=== PATIENT | female | born 1935 | race Caucasian/White ===

== ENCOUNTER 2016-05-14 14:26 | Emergency (ER) | payer OTHER, MEDICARE ==
[~2016-05-14 14:26] MED LIST: ABILIFY5 MG PO; ALPRAZOLAM0.5 MG PO; ASPIRIN 81 LOW81 MG PO; ATENOLOL100 MG PO; CARDIZEM LA240 MG PO; CARDIZEM PO; CLOPIDOGREL75 MG PO; FLUOXETINE HCL10 M1 PO; IPRATROPIUM BROMIDE/; LASIX20 MG PO; LEVOTHYROXINE75 MCG PO; NAMENDA10 MG PO; NITROGLYCER0.1 MG/HR TOP; NITROGLYCER0.6 MG/H1 TOP; POTASSIUM CHLO20 ME4 PO; SIMVASTATIN40 MG
--- NOTE | 2016-05-14 16:40 | ED NURSING NOTES ---
Clinical Report - Nurses [facility] [address] [place] [address] 05/14/2016 14:28 Patient: BIPIN HOROWITZ TRIAGE Triage time 14:30 May 14 2016. Acuity: LEVEL 3. Chief Complaint: ALTERED MENTAL STATUS. Alert. YANNA COMA SCORE: [place] Coma Scale: 15- eyes open spontaneously (4); best verbal response- oriented x 4 (5); best motor response- obeys commands (6). --14:51 Agapito Rodriguez R.N. 14:34 05/14/16. BP: 119/71. HR: 65 (irregularly-irregular). RR: 16. O2 saturation: 94% on room air. Temp: 98 F. Pain level now: 0/10. --14:51 Agapito Rodriguez R.N. Weight: 69.3 kg measured. Height/Length: 65 inches Per Patient. BMI: 25.5. --14:41 Agapito Rodriguez R.N. Medications Albuterol Sulfate Inhalation nebulizer, daily. Clopidogrel Bisulfate Oral (Tablet 75 mg) 1 tablet, daily. Diltiazem HCl Oral 300 mg, daily. FLUoxetine HCl Oral (Capsule 10 mg) 1 capsule, 2x a day. Levothyroxine Sodium Oral (Tablet 75 mcg) 1 tablet, daily. Namenda Oral (Tablet 10 mg) 1 tablet, daily. Nitroglycerin Transdermal 0.3 mg, daily. --14:43 Agapito Rodriguez R.N. Memantine HCl Oral (Tablet 10 mg) 1 tablet, as needed. --14:44 Agapito Rodriguez R.N. Atenolol Oral (Tablet 100 mg) 1-1/2 tablets, daily. --14:48 Agapito Rodriguez R.N. Aspirin Oral (Tablet Chewable 81 mg) 1 tablet. --14:48 Agapito Rodriguez R.N. Albuterol Sulfate Inhalation nebulizer, daily. Albuterol Sulfate Inhalation nebulizer, daily. --14:48 Agapito Rodriguez R.N. Allergies Sulfa Antibiotics. --14:43 Agapito Rodriguez R.N. History Arrived by EMS, and accompanied by marketing research analyst. ( Noted to have (R) sided weakness and slurred speech this AM by marketing research analyst. The (R)-s weakness resolved by the time EMS arrived on the scene.). This started today. She has had trouble walking. 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 PAST MEDICAL HX: The patient is post-menopausal. SOCIAL HX: Smoker- current status unknown. No alcohol use or drug use. No infectious disease exposure. ABUSE ASSESSMENT: No report of abuse. NUTRITIONAL RISK ASSESSMENT: The nutritional risk assessment revealed no deficiencies. FUNCTIONAL ASSESSMENT: Functional assessment: no impairments noted. LEARNING NEEDS ASSESSMENT: The learning needs assessment revealed no barriers. FALL RISK ASSESSMENT: Fall risk assessment completed. Risk factors identified include patient age greater than 65 years and impairment of mobility. SKIN INTEGRITY ASSESSMENT: Skin integrity risk assessment completed. No skin integrity risk identified. --14:51 Agapito Rodriguez R.N. ADDITIONAL SURGERIES: Adenoidectomy. Appendectomy. Hysterectomy. Lung Surgery. Tonsillectomy. --14:50 Agapito Rodriguez R.N. Interventions ID and allergy band on patient. To treatment room. --14:51 Agapito Rodriguez R.N. PHYSICAL ASSESSMENT To room via stretcher. GENERAL / NEURO / PSYCH: Alert. Oriented X 4. Patient's speech is slurred. Patient appears well-nourished and neat and clean. RESPIRATORY: Respirations not labored. CVS: Cardiac rhythm: (Atrial fibrillation). GI / : Abdomen soft. Bowel sounds within normal limits. SKIN: Skin is warm and dry. Normal skin turgor. --14:52 Aagpito Rodriguez R.N. NURSING PROGRESS NOTES Oxygen administered by nasal cannula at 2 liters. Patient gowned. Reassurance given to the patient. Patient identifiers checked. Call light placed in reach. Side rails up x 2. Bed placed in lowest position. Brakes of bed on. Patient ready for evaluation- chart flagged and ED physician notified. --14:53 Agapito Rodriguez R.N. <<STRICKEN ENTRY-- 14:00 05/14/16. BP: 128/84. HR: 88. RR: 18. O2 saturation: 95% on room air. Pain level now: 7/10. --15:15 Agapito Rodriguez R.N. --END STRIKE>> Charted on wrong patient. --15:38 Agapito Rodriguez R.N. 15:07 05/14/2016 Site #1 started via IV in the left wrist with an 20g angiocath, with aseptic technique and good blood return; one attempt. Blood drawn: rainbow set and cultures x1. Labeled in the presence of the patient and sent to the lab. Saline lock flushed with 10 mL saline. --15:22 Chilo Gamez R.N. 15:22 05/14/2016 Started bag #1 1000 mL IV Fluids IV NS (Saline); at 500 mL/hr over 30 minute(s) via site #1 via IV pump. Allergies verified and confirmed 5 rights. IV patency established. IV site checked: no pain, redness, or swelling. IV flushed thoroughly pre- and post-medication administration. --15:22 Chilo Gamez R.N. EKG time: (1534). EKG was ordered, performed by a tech and shown to the ED physician. --16:15 Odette Choudhury 15:00 05/14/16. BP: 114/61. HR: 67. RR: 20. O2 saturation: 98% on nasal cannula at 2 liters/minute. Pain level now: 0/10. --16:43 Agapito Rodriguez R.N. 16:43 05/14/16. BP: 107/66. HR: 64. RR: 20. O2 saturation: 100% on room air. Pain level now: 0/10. --16:45 Agapito Rodriguez R.N. 16:45 05/14/2016 Started 1 gm of Ceftriaxone IVPB in bag #1 50 mL; at 100 mL/hr over 30 minute(s) via site #1; Allergies verified and confirmed 5 rights. IV patency established. IV site checked: no pain, redness, or swelling. IV flushed thoroughly pre- and post-medication administration. --17:16 Agapito Rodriguez R.N. 17:11 05/14/2016 Ceftriaxone IVPB Discontinued: bag #1 infused. Total amount infused: 50 mL. IV patency established. IV site checked: no pain, redness, or swelling. IV flushed thoroughly. --17:16 Agapito Rodriguez R.N. DISPOSITION / DISCHARGE 18:16 05/14/16. BP: 118/54. HR: 65. RR: 18. O2 saturation: 98%. Temp: 98.3 F. Pain level now 0/10. --18:19 Chilo Gamez R.N. Departure time: 1730. Condition at departure: improved. No learning barriers present. Discharge instructions provided and reviewed with the patient and family. Reviewed warnings. Reviewed medication(s). Treatments reviewed. Reviewed referrals. Patient and family verbalized understanding. The patient was discharged home and accompanied by family. She left the Emergency Department ambulatory and via private vehicle. Patient driving. --18:19 Chilo Gamez R.N. 16:24 05/14/2016 IV Fluids IV NS Discontinued: bag #1 infused upon discharge. Total amount infused: 1000 mL. IV patency established. IV site checked: no pain, redness, or swelling. IV flushed thoroughly. --18:24 Chilo Gamez R.N. 17:00 05/14/2016 Site #1 removed upon discharge. Catheter intact. Pressure dressing applied. --18:23 Chilo Gamez R.N. Locked/Released at 05/15/2016 17:34 by Agapito Rodriguez R.N.
--- NOTE | 2016-05-14 16:40 | ED NURSING NOTES ---
Clinical Report - Nurses [facility] [address] [place] [address] 05/14/2016 14:28 Patient: BIPIN HOROWITZ TRIAGE Triage time 14:30 May 14 2016. Acuity: LEVEL 3. Chief Complaint: ALTERED MENTAL STATUS. Alert. YANNA COMA SCORE: [place] Coma Scale: 15- eyes open spontaneously (4); best verbal response- oriented x 4 (5); best motor response- obeys commands (6). --14:51 Agapito Rodriguez R.N. 14:34 05/14/16. BP: 119/71. HR: 65 (irregularly-irregular). RR: 16. O2 saturation: 94% on room air. Temp: 98 F. Pain level now: 0/10. --14:51 Agapito oRdriguez R.N. Weight: 69.3 kg measured. Height/Length: 65 inches Per Patient. BMI: 25.5. --14:41 Agapito Rodriguez R.N. Medications Albuterol Sulfate Inhalation nebulizer, daily. Clopidogrel Bisulfate Oral (Tablet 75 mg) 1 tablet, daily. Diltiazem HCl Oral 300 mg, daily. FLUoxetine HCl Oral (Capsule 10 mg) 1 capsule, 2x a day. Levothyroxine Sodium Oral (Tablet 75 mcg) 1 tablet, daily. Namenda Oral (Tablet 10 mg) 1 tablet, daily. Nitroglycerin Transdermal 0.3 mg, daily. --14:43 Agapito Rodriguez R.N. Memantine HCl Oral (Tablet 10 mg) 1 tablet, as needed. --14:44 Agapito Rodriguez R.N. Atenolol Oral (Tablet 100 mg) 1-1/2 tablets, daily. --14:48 Agapito Rodriguez R.N. Aspirin Oral (Tablet Chewable 81 mg) 1 tablet. --14:48 Agapito Rodriguez R.N. Albuterol Sulfate Inhalation nebulizer, daily. Albuterol Sulfate Inhalation nebulizer, daily. --14:48 Agapito Rodriguez R.N. Allergies Sulfa Antibiotics. --14:43 Agapito Rodriguez R.N. History Arrived by EMS, and accompanied by lean manager. ( Noted to have (R) sided weakness and slurred speech this AM by lean manager. The (R)-s weakness resolved by the time EMS arrived on the scene.). This started today. She has had trouble walking. 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 PAST MEDICAL HX: The patient is post-menopausal. SOCIAL HX: Smoker- current status unknown. No alcohol use or drug use. No infectious disease exposure. ABUSE ASSESSMENT: No report of abuse. NUTRITIONAL RISK ASSESSMENT: The nutritional risk assessment revealed no deficiencies. FUNCTIONAL ASSESSMENT: Functional assessment: no impairments noted. LEARNING NEEDS ASSESSMENT: The learning needs assessment revealed no barriers. FALL RISK ASSESSMENT: Fall risk assessment completed. Risk factors identified include patient age greater than 65 years and impairment of mobility. SKIN INTEGRITY ASSESSMENT: Skin integrity risk assessment completed. No skin integrity risk identified. --14:51 Agapito Rodriguez R.N. ADDITIONAL SURGERIES: Adenoidectomy. Appendectomy. Hysterectomy. Lung Surgery. Tonsillectomy. --14:50 Agapito Rodriguez R.N. Interventions ID and allergy band on patient. To treatment room. --14:51 Agapito Rodriguez R.N. PHYSICAL ASSESSMENT To room via stretcher. GENERAL / NEURO / PSYCH: Alert. Oriented X 4. Patient's speech is slurred. Patient appears well-nourished and neat and clean. RESPIRATORY: Respirations not labored. CVS: Cardiac rhythm: (Atrial fibrillation). GI / : Abdomen soft. Bowel sounds within normal limits. SKIN: Skin is warm and dry. Normal skin turgor. --14:52 Agapito Rodriguez R.N. NURSING PROGRESS NOTES Oxygen administered by nasal cannula at 2 liters. Patient gowned. Reassurance given to the patient. Patient identifiers checked. Call light placed in reach. Side rails up x 2. Bed placed in lowest position. Brakes of bed on. Patient ready for evaluation- chart flagged and ED physician notified. --14:53 Agapito Rodriguez R.N. <<STRICKEN ENTRY-- 14:00 05/14/16. BP: 128/84. HR: 88. RR: 18. O2 saturation: 95% on room air. Pain level now: 7/10. --15:15 Agapito Rodriguez R.N. --END STRIKE>> Charted on wrong patient. --15:38 Agapito Rodriguez R.N. 15:07 05/14/2016 Site #1 started via IV in the left wrist with an 20g angiocath, with aseptic technique and good blood return; one attempt. Blood drawn: rainbow set and cultures x1. Labeled in the presence of the patient and sent to the lab. Saline lock flushed with 10 mL saline. --15:22 Chilo Gamez R.N. 15:22 05/14/2016 Started bag #1 1000 mL IV Fluids IV NS (Saline); at 500 mL/hr over 30 minute(s) via site #1 via IV pump. Allergies verified and confirmed 5 rights. IV patency established. IV site checked: no pain, redness, or swelling. IV flushed thoroughly pre- and post-medication administration. --15:22 Chilo Gamez R.N. EKG time: (1534). EKG was ordered, performed by a tech and shown to the ED physician. --16:15 Odette Choudhury 15:00 05/14/16. BP: 114/61. HR: 67. RR: 20. O2 saturation: 98% on nasal cannula at 2 liters/minute. Pain level now: 0/10. --16:43 Agapito Rodriguez R.N. 16:43 05/14/16. BP: 107/66. HR: 64. RR: 20. O2 saturation: 100% on room air. Pain level now: 0/10. --16:45 Agapito Rodriguez R.N. 16:45 05/14/2016 Started 1 gm of Ceftriaxone IVPB in bag #1 50 mL; at 100 mL/hr over 30 minute(s) via site #1; Allergies verified and confirmed 5 rights. IV patency established. IV site checked: no pain, redness, or swelling. IV flushed thoroughly pre- and post-medication administration. --17:16 Agapito Rodriguez R.N. 17:11 05/14/2016 Ceftriaxone IVPB Discontinued: bag #1 infused. Total amount infused: 50 mL. IV patency established. IV site checked: no pain, redness, or swelling. IV flushed thoroughly. --17:16 Agapito Rodriguez R.N. DISPOSITION / DISCHARGE 18:16 05/14/16. BP: 118/54. HR: 65. RR: 18. O2 saturation: 98%. Temp: 98.3 F. Pain level now 0/10. --18:19 Chilo Gamez R.N. Departure time: 1730. Condition at departure: improved. No learning barriers present. Discharge instructions provided and reviewed with the patient and family. Reviewed warnings. Reviewed medication(s). Treatments reviewed. Reviewed referrals. Patient and family verbalized understanding. The patient was discharged home and accompanied by family. She left the Emergency Department ambulatory and via private vehicle. Patient driving. --18:19 Chilo Gamez R.N. 16:24 05/14/2016 IV Fluids IV NS Discontinued: bag #1 infused upon discharge. Total amount infused: 1000 mL. IV patency established. IV site checked: no pain, redness, or swelling. IV flushed thoroughly. --18:24 Chilo Gamez R.N. 17:00 05/14/2016 Site #1 removed upon discharge. Catheter intact. Pressure dressing applied. --18:23 Chilo Gamez R.N. Locked/Released at 05/15/2016 17:34 by Agapito Rodriguez R.N.
--- NOTE | 2016-05-14 16:40 | ED CLINICAL REPORT ---
Clinical Report - Physicians/Mid Levels [facility] [address] [place] [address] 05/14/2016 14:28 Patient: BIPIN HOROWITZ Time Seen: 14:41. Arrived- By ambulance. Historian- patient and EMS personnel. HISTORY OF PRESENT ILLNESS Chief Complaint: WEAKNESS and IMPAIRED SPEECH. ALTERED CONSCIOUSNESS. This started just prior to arrival, is still present and is now gone. It was gradual in onset and has been waxing/waning. The patient has had generalized weakness, (had right sided weakness, but now seems better / resolved). She has had difficulty with speech ("slurred" - no expressive or receptive aphasia). She has had impaired swallowing. She has had difficulty walking. At its maximum deficit described as moderate. When seen in the E.D., it was gone. The patient has had dizziness. No blackouts. (Noted to have (R) sided weakness and slurred speech this AM by propagator -caregiver reports pt has longstanding right sided weakness, but worse today and pt wound lean to the right when walking. The (R)-s weakness resolved by the time EMS arrived on the scene and patient was lying down and resting. EMS noted her to have 2 NTG patches on and BP was low.). Similar symptoms previously: Recent medical care: The patient was seen recently in a clinic. REVIEW OF SYSTEMS No fever, headache, head injury, chest pain or difficulty breathing. No cough, sputum production, sore throat, abdominal pain or nausea. No diarrhea, black stools, difficulty with urination, skin rash or vomiting. No bloody stools or back pain. All systems otherwise negative, except as recorded above. PAST HISTORY Hypertension. Coronary artery disease. Atrial fibrillation. Multiple episodes of stroke mild to moderate right side weakness with residual deficit: hemiparesis. ( Problems: Hypertension. Coronary artery disease. Atrial fibrillation. Multiple episodes of stroke mild to moderate right side weakness with residual deficit: hemiparesis. Chronic obstructive pulmonary disease. Hyperlipidemia. Dementia. History of lung cancer - electing not to do surgery or chemo or additional radiation. SURGERIES: Adenoidectomy. Appendectomy. Hysterectomy. Lung Surgery. Tonsillectomy. ADDITIONAL HISTORY FROM OLD RECORDS: MEDICAL/SURGICAL HISTORY: Past medical history: Atrial fibrillation. Coronary artery disease with distant history of 2 stents. She did have an NM in 02/2014, though there was no intervention due to her health conditions. Dementia. Left-sided lung cancer with left lobectomy 20 years ago. She had some recurrent disease about 2 years ago for which she received some radiation therapy on the left. Over the last 2 years, they have been monitoring a right-sided lung cancer, which has been growing in size, though it has not been biopsied. Oncology feels fairly certain it is lung cancer based on CT and PET scan findings. Hyperlipidemia. Hypothyroidism. History of cerebrovascular accident x2. History of congestive heart failure. History of thrombocytopenia.). Medications: Albuterol Sulfate Inhalation nebulizer, daily. Albuterol Sulfate Inhalation nebulizer, daily. Aspirin Oral (Tablet Chewable 81 mg) 1 tablet. Atenolol Oral (Tablet 100 mg) 1-1/2 tablets, daily. Memantine HCl Oral (Tablet 10 mg) 1 tablet, as needed. Albuterol Sulfate Inhalation nebulizer, daily. Clopidogrel Bisulfate Oral (Tablet 75 mg) 1 tablet, daily. Diltiazem HCl Oral 300 mg, daily. FLUoxetine HCl Oral (Capsule 10 mg) 1 capsule, 2x a day. Levothyroxine Sodium Oral (Tablet 75 mcg) 1 tablet, daily. Namenda Oral (Tablet 10 mg) 1 tablet, daily. Nitroglycerin Transdermal 0.3 mg, daily. Allergies: Sulfa Antibiotics. SOCIAL HISTORY Former smoker. No alcohol use or drug use. Is a local resident. She lives with a family member and caregiver. Has good social support. ADDITIONAL NOTES The nursing notes have been reviewed. PHYSICAL EXAM Vital Signs: 05/14/2016 14:34 BP: 119/71. HR: 65. RR: 16. O2 saturation: 94%. Temp: 98 F. Pain level now: 0/10. Appearance: No acute distress. Anxious. Patient in mild distress. Odor of alcohol is not present. Speech is not slurred. Head: Head atraumatic. ENT: Normal ENT inspection. Airway intact. Pharynx normal. Neck: Normal inspection. Neck supple. CVS: Normal heart rate and rhythm. Pulses normal. Respiratory: No respiratory distress. Breath sounds normal. Abdomen: Soft and nontender. Back: Normal inspection. Skin: Skin warm and dry. Normal skin color. No rash. Normal skin turgor. Extremities: Extremities exhibit normal ROM. No lower extremity edema. Neuro: Alert. Altered mental status. Eyes open spontaneously. Best verbal response: disoriented. Best motor response: obeys commands. Cranial nerves normal (as tested). No motor deficit. No sensory deficit. LABS, X-RAYS, AND EKG EKG: EKG time: (15:34). Atrial fibrillation (ventricular rate 70). Normal QRS complex. Normal axis. Non-specific ST segment / T wave abnormalities. The study has been interpreted contemporaneously by me. The EKG appears to be a good tracing. Rhythm Strip #1: Atrial fibrillation (ventricular rate 70 - 80). No ectopy. Chest X-ray: (IMPRESSION: 1. Enlargement of right lower lobe lung mass consistent with neoplasm given prior imaging appearances. 2. Status post left upper lobectomy with diffuse pleural thickening, small left pleural effusion, and postradiation treatment changes in the left suprahilar region.). Views: AP (portable). Technique: good. The X-rays were interpreted contemporaneously by me. A comparison with prior films reveals that the findings have worsened (increased size of right lung mass vs 05/19/15). Laboratory Tests: UA-Culture if indicated: (GISSELL: 05/14/2016 15:21) ( MsgRcvd 05/14/2016 16:14) Final results Test Result Flag Units (Reference) URINE COLOR YELLOW URINE APPEARANCE CLOUDY URINE GLUCOSE NEGATIVE (NEGATIVE) URINE BILIRUBIN NEGATIVE (NEGATIVE) URINE KETONE NEGATIVE (NEGATIVE) URINE SPECIFIC GRAVITY 1.020 (1.010-1.030) URINE PH 6.0 (5.0-8.0) URINE PROTEIN NEGATIVE (NEGATIVE) URINE UROBILINOGEN 0.2 EU/dL (0.2-1.0) URINE NITRITE NEGATIVE (NEGATIVE) URINE BLOOD 2+ (NEGATIVE) URINE LEUK ESTERASE POSITIVE (NEGATIVE) URINE RBC 3-5 rbc/hpf (0-1) URINE WBC 5-10 wbc/hpf (0-1) URINE EPITHELIAL CELLS 3-5 EPI/hpf (0-5) URINE BACTERIA MANY (4+) (NONE SEEN) URINE COMMENT CULTURE INDICATED URINE CULTURES ARE SET-UP BASED ON THE FOLLOWING CRITERIA:POSITIVE NITRITEPOSITIVE LEUKOCYTE ESTERASEGREATER THAN 10 WHITE BLOOD CELLSMODERATE (2+) OR GREATER BACTERIA CBC w Diff: (GISSELL: 05/14/2016 15:21) ( [facility] 05/14/2016 15:48) IP Test Result Flag Units (Reference) WHITE BLOOD COUNT 8.9 K/uL (4.5-11.5) RED BLOOD COUNT 4.77 M/uL (4.00-5.20) HEMOGLOBIN 13.8 gm/dL (12.0-16.0) HEMATOCRIT 42.2 % (36.0-46.0) MEAN CELL VOLUME 88 fL (80-100) MEAN CORPUSCULAR HGB 29 pg (26-34) MEAN CORPUSCULAR HGB CONC 33 g/dL (31-37) RED CELL DISTRIBUTION WIDTH 14.7 % (11.6-14.8) NEUTROPHIL % 67.1 % (50-75) LYMPH % 13.9 L % (25-40) MONO % 8.4 % (3-14) EOSINOPHIL % 9.6 H % (0-4) BASOPHIL % 1.0 % (0-2) [id number]: (GISSELL: 05/14/2016 15:21) ( [facility] 05/14/2016 15:50) Final results Test Result Flag Units (Reference) D-DIMER QUANTITATIVE 1.99 H ug/mLFEU (0.27-0.52) The primary value of this quantitative assay relates toits negative predictive value (i.e. exclusion) of pulmonaryembolism/deep vein thrombosis/DIC.Elevated levels of d-dimer may also occur with:, age, cancer, inflammation, liver disease,post-op, infection, hematoma, coronary disease, peripheralarteriopathy, bleeding disorders and thrombolytic treatment.Results should be correlated with other clinical andradiological data.Testing Methodology: Latex Immunoassay BNP: (GISSELL: 05/14/2016 15:21) ( [facility] 05/14/2016 16:09) Final results Test Result Flag Units (Reference) B-TYPE NATRIURETIC PEPTIDE 252 H pg/ml (5-100) Amylase: (GISSELL: 05/14/2016 15:21) ( [facility] 05/14/2016 16:00) Final results Test Result Flag Units (Reference) AMYLASE 44 U/L (25-115) CHEM 13 PANEL: (GISSELL: 05/14/2016 15:21) ( MsgRcvd 05/14/2016 16:26) Final results Test Result Flag Units (Reference) GLUCOSE 82 mg/dL (70-110) BUN 18 mg/dL (7-18) CREATININE 1.2 mg/dL (0.6-1.3) Estimated GFR 46.06 mL/min Estimated GFR- 55.82 mL/min Note: Persistent reduction over 3 months in eGFR<60 mL/min/1.73 m2 defines CKD. Patients with eGFR values>=60 mL/min/1.73 m2 may also have CKD if evidence ofpersistent proteinuria. Additional information may be foundat www.kidney.org. SODIUM 134 L mmol/L (136-145) POTASSIUM 4.4 mmol/L (3.5-5.1) CHLORIDE 99 mmol/L (98-107) CARBON DIOXIDE 32 mmol/L (21-32) CALCIUM 9.1 mg/dL (8.5-10.1) TOTAL PROTEIN 6.8 g/dL (6.4-8.2) ALBUMIN 2.7 L g/dL (3.3-5.0) BILIRUBIN, TOTAL 0.4 mg/dL (0.0-1.0) ALKALINE PHOSPHATASE 69 U/L (46-116) AST (SGOT) 12 L U/L (15-37) ALT (SGPT) 16 U/L (12-78) MAGNESIUM 1.8 mg/dL (1.8-2.4) CPK 21 L U/L (24-260) TROPONIN I <0.05 ng/mL (0.00-1.5) TROPONIN REFERENCE RANGE:<0.1 NEGATIVE0.1-1.5 INDETERMINANT>1.5 POSITIVE Rapid Influenza Screen: (GISSELL: 05/14/2016 14:45) ( MsgRcvd 05/14/2016 15:14) Final results SPECIMEN DESCRIPTION: CHURCH SUPERVISOR SWAB Test Result Flag Units (Reference) RAPID INFLUENZA SCREEN DATE: 05/14/16 INFLUENZA A: NEGATIVE SCREEN FOR INFLUENZA A INFLUENZA B: NEGATIVE SCREEN FOR INFLUENZA B . Microbiology: Urine culture ordered. Pulse Oximetry: 05/14/2016 14:00 O2 saturation: 95%. (FIO2 - room air). Interpretation: normal. PROGRESS AND PROCEDURES Course of Care: Normal Saline 1 liter IVPB given. Ceftriaxone 1gm IVP given. Episode today likely due to increased ntg and concurrent UTI. UA with 4+ bacteria on cath specimen. Pt is asymptomatic during her stay. D-dimer elevation likely secondary to her lung cancer, age and current UTI (on cath UA). Will hold CTPA for now as pt is "limited interventions". Patient/family counseled. Old ED and inpatient records reviewed. Disposition: Discharged. Condition: stable and improved. CLINICAL IMPRESSION Nontraumatic cerebrovascular accident- ischemic infarct. (old - not acute). Chronic atrial fibrillation. The patient has one or more high risk factors and/or two or more moderate risk factors for thromboembolism. The patient is not prescribed warfarin or another FDA approved anticoagulant because Pt with POLST with comfort measures - risk > benefit. Advanced right lower lobe lung cancer. Transient, hypotension due to drugs (likely secondary to excessive nitroglycerin). Acute urinary tract infection with cystitis. Doubt single acute transient ischemic attack. INSTRUCTIONS Drink plenty of fluids. Warnings: Further evaluation is necessary in order to recheck abnormal lab, obtain test results, conduct further tests and assess the possibility of serious illness. It is very important to follow up with a physician. GENERAL WARNINGS: Return or contact your physician immediately if your condition worsens or changes unexpectedly, if not improving as expected, or if other problems arise. Prescription Medications: Macrobid 100 mg: Take 1 capsule orally every 12 hours for 7 days. No refills. Substitution is permissible. Follow-up: Follow up with your doctor [facility] in about two days. (Electronically signed by Fitz Woods DO 05/14/2016 21:36)
--- NOTE | 2016-05-14 16:40 | ED ORDER SUMMARY ---
..... Patient: BIPIN HOROWITZ OrderSheet [facility] VisitID: [id number] [place] [address] 80y, F Registration Date/Time: 05/14/2016 ORDER SHEET Weight: 69.3 kg (measured) Allergies: Sulfa Antibiotics GENERAL ORDERS: Chest 1V Urgent (14:42 05/14/2016 [facility]) (Ack 14:46 TBergley) (15:01 Yuri) Head Of Mathematics (Continuous) (14:42 [facility] (Ack 14:46 TBergley) (14:53 JRomanelli R.N.) UA-Culture if indicated Urgent (14:43 05/14/2016 [facility] DO) (Ack 14:46 TBergley) (15:20 LWhalen R.N.) Cardiac Panel Stat (14:43 05/14/2016 [facility]) (Ack 14:46 TBergley) (14:53 JRomanelli R.N.) BNP Urgent (14:43 [facility]2016 [facility] (Ack 14:46 TBergley) (14:53 JRomanelli R.N.) D-Dimer Ur[facility] (14:43 [facility] (Ack 14:46 TBergley) (14:53 JRomanelli R.N.) Amylase Urgent (14:43 [facility]/14/2016 [facility] (Ack 14:46 TBergley) (14:53 JRomanelli R.N.) Pulse oximeter (14:43 05/14/2016 [facility]) (Ack 14:46 TBergley) (14:53 JRomanelli R.N.) EKG - ER Stat (14:43 05/14/2016 [facility]) (Ack 14:46 TBergley) (16:14 TBergley) Vitals (14:43 [facility]2016 [facility] (Ack 14:46 TBergley) (15:20 LWhalen R.N.) Rapid Influenza Screen (Nasal Pharyngeal) (RN PAIN MANAGEMENT swab) Urgent (14:53 05/14/2016 [facility]) (Ack 15:13 TBergley) (15:20 Farzana R.N.) MEDICATION ORDERS: IV FLUIDS: IV NS : initial bolus 500 mL (1000 mL/hr), then 250 mL/hr for X2 (NOW) (14:42 05/14/2016 [facility]) (15:22 Farzana R.N.) Ceftriaxone IV 1 gm/50mL (NOW) (16:18 05/14/2016 [facility]) (17:16 Mari Wang.NJuwan) ORDER SHEET NOTES: [Electronically signed by Fitz Woods DO (21:36 05/14/2016)] [Electronically signed by Agapito Rodriguez R.N. (17:34 05/15/2016)] [Electronically locked/signed by Agapito Rodriguez R.N. (17:34 05/15/2016)]
--- NOTE | 2016-05-14 16:40 | ED ORDER SUMMARY ---
..... Patient: BIPIN HOROWITZ OrderSheet [facility] VisitID: [id number] [place] [address] 80y, F Registration Date/Time: 05/14/2016 ORDER SHEET Weight: 69.3 kg (measured) Allergies: Sulfa Antibiotics GENERAL ORDERS: Chest 1V Urgent (14:42 05/14/2016 [facility]) (Ack 14:46 TBergley) (15:01 Yuri) Field Appraiser (Continuous) (14:42 [facility]/2016 [facility] (Ack 14:46 TBergley) (14:53 JRomanelli R.N.) UA-Culture if indicated Urgent (14:43 05/14/2016 [facility] DO) (Ack 14:46 TBergley) (15:20 LWhalen R.N.) Cardiac Panel Stat (14:43 05/14/2016 [facility]) (Ack 14:46 TBergley) (14:53 JRomanelli R.N.) BNP Urgent (14:43 [facility]/14/[facility] (Ack 14:46 TBergley) (14:53 JRomanelli R.N.) D-Dimer Urgent (14:43 [facility]14[facility]2016 [facility] (Ack 14:46 TBergley) (14:53 JRomanelli R.N.) Amylase Urgent (14:43 [facility]/14/2016 [facility]) (Ack 14:46 TBergley) (14:53 JRomanelli R.N.) Pulse oximeter (14:43 05/14/2016 [facility]) (Ack 14:46 TBergley) (14:53 JRomanelli R.N.) EKG - ER Stat (14:43 05/14/2016 [facility]) (Ack 14:46 TBergley) (16:14 TBergley) Vitals (14:43 [facility]14/2016 [facility] (Ack 14:46 TBergley) (15:20 LWhalen R.N.) Rapid Influenza Screen (Nasal Pharyngeal) (SNATH HANDLE ASSEMBLER swab) Urgent (14:53 05/14/2016 [facility]) (Ack 15:13 TBergley) (15:20 Farzana R.N.) MEDICATION ORDERS: IV FLUIDS: IV NS : initial bolus 500 mL (1000 mL/hr), then 250 mL/hr for X2 (NOW) (14:42 05/14/2016 [facility]) (15:22 Farzana R.N.) Ceftriaxone IV 1 gm/50mL (NOW) (16:18 05/14/2016 [facility]) (17:16 Mari Wang.NJuwan) ORDER SHEET NOTES: [Electronically signed by Fitz Woods DO (21:36 05/14/2016)] [Electronically signed by Agapito Rodriguez R.N. (17:34 05/15/2016)] [Electronically locked/signed by Agapito Rodriguez R.N. (17:34 05/15/2016)]
--- NOTE | 2016-05-14 16:45 | DIAGNOSTIC IMAGING REPORT ---
PROCEDURE: XR CHEST 1 VIEW INDICATION: Progression initial encounter TECHNIQUE: Portable AP view 02:53 p.m. COMPARISON: Chest x-ray 05/19/[address] chest 05/13/2014 FINDINGS: Progression of 7.5 cm right lower lobe mass (previously 4.9 cm) left hilar surgical changes and left hemithorax volume loss, unchanged, consistent with prior upper lobectomy with stable mild cardiomegaly and pulmonary vascularity. Bones are unremarkable. IMPRESSION: 1. 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 Status post left upper lobectomy
--- NOTE | 2016-05-15 17:34 | ED MAR SUMMARY ---
..... Medication Administration Record [facility] [address] [place] [address] Patient: BIPIN HOROWITZ Visit ID: [id number] 80y, F Weight: 69.3 kg Height/Length: 65 in BMI: 25.5 ALLERGIES: Sulfa Antibiotics Start 15:22 05/14/2016 Chilo Gamez R.N., Stop 16:24 05/14/2016 Chilo Gamez R.N. Medication Administered: IV NS (SALINE), Dose: IV Fluids over 30 minute(s), Rate: 500 mL/hr, Dispensed: 1000 mL bag, Site: #1 left wrist. Medication Ordered: IV NS : initial bolus 500 mL (1000 mL/hr), then 250 mL/hr for X2 (NOW). Start 16:45 05/14/2016 Agapito Rodriguez RStevne, Stop 17:11 05/14/2016 Agapito Rodriguez RJuwanN. Medication Administered: CEFTRIAXONE [IVPB], Dose: 1 gm IVPB over 30 minute(s), Rate: 100 mL/hr, Dispensed: 50 mL bag, Site: #1 left wrist. Medication Ordered: Ceftriaxone IV 1 gm/50mL (NOW).
--- NOTE | 2016-05-15 17:34 | ED MED RECONCILIATION SUMMARY ---
Patient: BIPIN HOROWITZ Medication Reconciliation Report [facility] VisitID: [id number] [address] [place] [address] 80y, F Registration Date/Time: 05/14/2016 Weight: 69.3 kg Height/Length: 65 in. BMI: 25.5 ALLERGIES: Sulfa Antibiotics The patient's Home Medications are listed below: THE FOLLOWING MEDICATIONS NEED TO BE RECONCILED: Albuterol Sulfate Inhalation nebulizer, daily Albuterol Sulfate Inhalation nebulizer, daily Albuterol Sulfate Inhalation nebulizer, daily Aspirin Oral (81 mg) 1 tablet Atenolol Oral (100 mg) 1-1/2 tablets, daily Clopidogrel Bisulfate Oral (75 mg) 1 tablet, daily Diltiazem HCl Oral 300 mg, daily FLUoxetine HCl Oral (10 mg) 1 capsule, 2x a day Levothyroxine Sodium Oral (75 mcg) 1 tablet, daily Memantine HCl Oral (10 mg) 1 tablet Namenda Oral (10 mg) 1 tablet, daily Nitroglycerin Transdermal 0.3 mg, daily The source(s) of the original Home Medication information: Not obtained. The following Medications were given to the patient in the Emergency Department: IV NS IV Fluids bolus 0, then 500 mL/hr, administered: 05/14/2016 3:22:00 PM Ceftriaxone [IVPB] IVPB bolus 0, then 1 gm 100 mL/hr, administered: 05/14/2016 4:45:00 PM The following Medications were prescribed to the patient: Macrobid 100 mg: Take 1 capsule orally every 12 hours for 7 days. No refills. Substitution is permissible. -- Fitz Woods,
--- NOTE | 2016-05-15 17:34 | ED DISCHARGE INSTRUCTIONS ---
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 Chronic atrial fibrillation. The patient has one or more high risk factors and/or two or more moderate risk factors for thromboembolism. The patient is not prescribed warfarin or another FDA approved anticoagulant because Pt with POLST with comfort measures - risk > benefit. Advanced right lower lobe lung cancer. Transient, hypotension due to drugs (likely secondary to excessive nitroglycerin). Acute urinary tract infection with cystitis. INSTRUCTIONS Drink plenty of fluids. Warnings: Further evaluation is necessary in order to recheck abnormal lab, obtain test results, conduct further tests and assess the possibility of serious illness. It is very important to follow up with a physician. GENERAL WARNINGS: Return or contact your physician immediately if your condition worsens or changes unexpectedly, if not improving as expected, or if other problems arise. Prescription Medications: Macrobid 100 mg: Take 1 capsule orally every 12 hours for 7 days. No refills. Substitution is permissible. Follow-up: Follow up with your doctor [facility] in about two days. ADDITIONAL INFORMATION Bladder Infection,Female (Adult) A bladder infection ("cystitis" or "UTI") usually causes a constant urge to urinate and a burning when passing urine. Urine may be cloudy, smelly or dark. There may be pain in the lower abdomen. A bladder infection occurs when bacteria from the vaginal area enter the bladder opening (urethra). This can occur from sexual intercourse, wearing tight clothing, dehydration and other factors. Home Care: Drink lots of fluids (at least 6-8 glasses a day, unless you must restrict fluids for other medical reasons). This will force the medicine into your urinary system and flush the bacteria out of your body. Avoid sexual intercourse until your symptoms are gone. Avoid caffeine, alcohol and spicy foods. These can irritate the bladder. A bladder infection is treated with antibiotics. You may also be given Pyridium (generic = phenazopyridine) to reduce the burning sensation. This medicine will cause your urine to become a bright orange color. The orange urine may stain clothing. You may wear a pad or panty-liner to protect clothing. Preventing Future Infections: Always wipe from front to back after a bowel movement. Keep the genital area clean and dry. Drink plenty of fluids each day to avoid dehydration. Both sexual partners should wash before intercourse. Urinate right after intercourse to flush out the bladder. Wear cotton underwear and cotton-lined panty hose; avoid tight-fitting pants. If you are on control pills and are having frequent bladder infections, discuss with your doctor. Follow Up: Return to this facility or see your doctor if ALL symptoms are not gone after three days of treatment. Get Prompt Medical Attention if any of the following occur: Fever of 100.4F (38C) or higher, or as directed by your healthcare provider No improvement by the third day of treatment Increasing back or abdominal pain Repeated vomiting; unable to keep medicine down Weakness, dizziness or fainting Vaginal discharge Pain, redness or swelling in the labia (outer vaginal area) Orthostatic Hypotension The normal blood pressure range is between 90/60and 140/80. Low blood pressure (also calledhypotension) is a decrease in blood pressure from what is normal for you. Orthostatic hypotensionis a type of low blood pressure that occurs only when changing body position from lying to standing. It can cause symptoms of dizziness, lightheadedness or fainting. Some of the causesof orthostatic hypotension are: Certain medicines, including: High blood pressure medicines Diuretics (water pills) Some heart medicines Some antidepressants Pain, anxiety, sedative, and sleeping medicines Dehydration (from vomiting, diarrhea, or poor fluid intake) Severe infection, high fever Blood loss (for example, bleeding from the stomach or intestines) Treatment will depend on the cause of your low blood pressure. Home Care: Rest until symptoms improve. Change positions slowly from lying to standing.When getting out of bed, sit on the side of the bed with your legs down for at least 30 seconds before standing. This gives your body time to adjust to the position change. Follow the treatment plan described by your physician. Follow Up with your doctor or as advised by our staff. Get Prompt Medical Attention if any of the following occur: Dizziness, lightheadedness or fainting Black or red color in your stools or vomit Persistent diarrhea or vomiting Inability to eat or drink Fever of 100.4F (38C) or higher, or as directed by your healthcare provider Urinary burning or foul-smelling urine Nitrofurantoin, Nitrofurantoin, Macrocrystalline Oral capsule What is this medicine? NITROFURANTOIN (shae johnson) is an antibiotic. It is used to treat urinary tract infections. How should I use this medicine? Take this medicine by mouth with a glass of water. Follow the directions on the prescription label. Take this medicine with food or milk. Take your doses at regular intervals. Do not take your medicine more often than directed. Do not stop taking except on your doctor's advice. Talk to your zone supervisor firearms regarding the use of this medicine in children. While this drug may be prescribed for selected conditions, precautions do apply. What side effects may I notice from receiving this medicine? Side effects that you should report to your doctor or health manager urgent care as soon as possible: allergic reactions like skin rash or hives, swelling of the face, lips, or tongue chest pain cough difficulty breathing dizziness, drowsiness fever or infection joint aches or pains pale or blue-tinted skin redness, blistering, peeling or loosening of the skin, including inside the mouth tingling, burning, pain, or numbness in hands or feet unusual bleeding or bruising unusually weak or tired yellowing of eyes or skin Side effects that usually do not require medical attention (report to your doctor or health manager urgent care if they continue or are bothersome): dark urine diarrhea headache loss of appetite nausea or vomiting temporary hair loss What may interact with this medicine? antacids containing magnesium trisilicate probenecid quinolone antibiotics like ciprofloxacin, lomefloxacin, norfloxacin and ofloxacin sulfinpyrazone What if I miss a dose? If you miss a dose, take it as soon as you can. If it is almost time for your next dose, take only that dose. Do not take double or extra doses. Where should I keep my medicine? Keep out of the reach of children. Store at room temperature between 15 and 30 degrees C (59 and 86 degrees F). Protect from light. Throw away any unused medicine after the expiration date. What should I tell my health care provider before I take this medicine? They need to know if you have any of these conditions: anemia diabetes [id number] dehydrogenase deficiency kidney disease liver disease lung disease other chronic illness an unusual or allergic reaction to nitrofurantoin, other antibiotics, other medicines, foods, dyes or preservatives or trying to get breast-feeding What should I watch for while using this medicine? Tell your doctor or health manager urgent care if your symptoms do not improve or if you get new symptoms. Drink several glasses of water a day. If you are taking this medicine for a long time, visit your doctor for regular checks on your progress. If you are diabetic, you may get a false positive result for sugar in your urine with certain brands of urine tests. Check with your doctor. You have been given the following additional information: Bladder Infection, Female (Adult) Hypotension, Orthostatic Nitrofurantoin, Nitrofurantoin, Macrocrystalline Oral capsule (Electronically signed by Fitz Woods DO 05/14/2016 21:36)
--- NOTE | 2016-05-15 17:34 | ED MED RECONCILIATION SUMMARY ---
Patient: BIPIN HOROWITZ Medication Reconciliation Report [facility] VisitID: [id number] [address] [place] [address] 80y, F Registration Date/Time: 05/14/2016 Weight: 69.3 kg Height/Length: 65 in. BMI: 25.5 ALLERGIES: Sulfa Antibiotics The patient's Home Medications are listed below: THE FOLLOWING MEDICATIONS NEED TO BE RECONCILED: Albuterol Sulfate Inhalation nebulizer, daily Albuterol Sulfate Inhalation nebulizer, daily Albuterol Sulfate Inhalation nebulizer, daily Aspirin Oral (81 mg) 1 tablet Atenolol Oral (100 mg) 1-1/2 tablets, daily Clopidogrel Bisulfate Oral (75 mg) 1 tablet, daily Diltiazem HCl Oral 300 mg, daily FLUoxetine HCl Oral (10 mg) 1 capsule, 2x a day Levothyroxine Sodium Oral (75 mcg) 1 tablet, daily Memantine HCl Oral (10 mg) 1 tablet Namenda Oral (10 mg) 1 tablet, daily Nitroglycerin Transdermal 0.3 mg, daily The source(s) of the original Home Medication information: Not obtained. The following Medications were given to the patient in the Emergency Department: IV NS IV Fluids bolus 0, then 500 mL/hr, administered: 05/14/2016 3:22:00 PM Ceftriaxone [IVPB] IVPB bolus 0, then 1 gm 100 mL/hr, administered: 05/14/2016 4:45:00 PM The following Medications were prescribed to the patient: Macrobid 100 mg: Take 1 capsule orally every 12 hours for 7 days. No refills. Substitution is permissible. -- Fitz Woods,
--- NOTE | 2016-05-15 17:34 | ED MAR SUMMARY ---
..... Medication Administration Record [facility] [address] [place] [address] Patient: BIPIN HOROWITZ Visit ID: [id number] 80y, F Weight: 69.3 kg Height/Length: 65 in BMI: 25.5 ALLERGIES: Sulfa Antibiotics Start 15:22 05/14/2016 Chilo Gamez R.N., Stop 16:24 05/14/2016 Chilo Gamez R.N. Medication Administered: IV NS (SALINE), Dose: IV Fluids over 30 minute(s), Rate: 500 mL/hr, Dispensed: 1000 mL bag, Site: #1 left wrist. Medication Ordered: IV NS : initial bolus 500 mL (1000 mL/hr), then 250 mL/hr for X2 (NOW). Start 16:45 05/14/2016 Agapito Rodriguez RSteven, Stop 17:11 05/14/2016 Agapito Rodriguez RJuwanN. Medication Administered: CEFTRIAXONE [IVPB], Dose: 1 gm IVPB over 30 minute(s), Rate: 100 mL/hr, Dispensed: 50 mL bag, Site: #1 left wrist. Medication Ordered: Ceftriaxone IV 1 gm/50mL (NOW).
--- NOTE | 2016-05-15 17:34 | ED DISCHARGE INSTRUCTIONS ---
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 Chronic atrial fibrillation. The patient has one or more high risk factors and/or two or more moderate risk factors for thromboembolism. The patient is not prescribed warfarin or another FDA approved anticoagulant because Pt with POLST with comfort measures - risk > benefit. Advanced right lower lobe lung cancer. Transient, hypotension due to drugs (likely secondary to excessive nitroglycerin). Acute urinary tract infection with cystitis. INSTRUCTIONS Drink plenty of fluids. Warnings: Further evaluation is necessary in order to recheck abnormal lab, obtain test results, conduct further tests and assess the possibility of serious illness. It is very important to follow up with a physician. GENERAL WARNINGS: Return or contact your physician immediately if your condition worsens or changes unexpectedly, if not improving as expected, or if other problems arise. Prescription Medications: Macrobid 100 mg: Take 1 capsule orally every 12 hours for 7 days. No refills. Substitution is permissible. Follow-up: Follow up with your doctor [facility] in about two days. ADDITIONAL INFORMATION Bladder Infection,Female (Adult) A bladder infection ("cystitis" or "UTI") usually causes a constant urge to urinate and a burning when passing urine. Urine may be cloudy, smelly or dark. There may be pain in the lower abdomen. A bladder infection occurs when bacteria from the vaginal area enter the bladder opening (urethra). This can occur from sexual intercourse, wearing tight clothing, dehydration and other factors. Home Care: Drink lots of fluids (at least 6-8 glasses a day, unless you must restrict fluids for other medical reasons). This will force the medicine into your urinary system and flush the bacteria out of your body. Avoid sexual intercourse until your symptoms are gone. Avoid caffeine, alcohol and spicy foods. These can irritate the bladder. A bladder infection is treated with antibiotics. You may also be given Pyridium (generic = phenazopyridine) to reduce the burning sensation. This medicine will cause your urine to become a bright orange color. The orange urine may stain clothing. You may wear a pad or panty-liner to protect clothing. Preventing Future Infections: Always wipe from front to back after a bowel movement. Keep the genital area clean and dry. Drink plenty of fluids each day to avoid dehydration. Both sexual partners should wash before intercourse. Urinate right after intercourse to flush out the bladder. Wear cotton underwear and cotton-lined panty hose; avoid tight-fitting pants. If you are on control pills and are having frequent bladder infections, discuss with your doctor. Follow Up: Return to this facility or see your doctor if ALL symptoms are not gone after three days of treatment. Get Prompt Medical Attention if any of the following occur: Fever of 100.4F (38C) or higher, or as directed by your healthcare provider No improvement by the third day of treatment Increasing back or abdominal pain Repeated vomiting; unable to keep medicine down Weakness, dizziness or fainting Vaginal discharge Pain, redness or swelling in the labia (outer vaginal area) Orthostatic Hypotension The normal blood pressure range is between 90/60and 140/80. Low blood pressure (also calledhypotension) is a decrease in blood pressure from what is normal for you. Orthostatic hypotensionis a type of low blood pressure that occurs only when changing body position from lying to standing. It can cause symptoms of dizziness, lightheadedness or fainting. Some of the causesof orthostatic hypotension are: Certain medicines, including: High blood pressure medicines Diuretics (water pills) Some heart medicines Some antidepressants Pain, anxiety, sedative, and sleeping medicines Dehydration (from vomiting, diarrhea, or poor fluid intake) Severe infection, high fever Blood loss (for example, bleeding from the stomach or intestines) Treatment will depend on the cause of your low blood pressure. Home Care: Rest until symptoms improve. Change positions slowly from lying to standing.When getting out of bed, sit on the side of the bed with your legs down for at least 30 seconds before standing. This gives your body time to adjust to the position change. Follow the treatment plan described by your physician. Follow Up with your doctor or as advised by our staff. Get Prompt Medical Attention if any of the following occur: Dizziness, lightheadedness or fainting Black or red color in your stools or vomit Persistent diarrhea or vomiting Inability to eat or drink Fever of 100.4F (38C) or higher, or as directed by your healthcare provider Urinary burning or foul-smelling urine Nitrofurantoin, Nitrofurantoin, Macrocrystalline Oral capsule What is this medicine? NITROFURANTOIN (shae johnson) is an antibiotic. It is used to treat urinary tract infections. How should I use this medicine? Take this medicine by mouth with a glass of water. Follow the directions on the prescription label. Take this medicine with food or milk. Take your doses at regular intervals. Do not take your medicine more often than directed. Do not stop taking except on your doctor's advice. Talk to your guide delegate regarding the use of this medicine in children. While this drug may be prescribed for selected conditions, precautions do apply. What side effects may I notice from receiving this medicine? Side effects that you should report to your doctor or health career center director as soon as possible: allergic reactions like skin rash or hives, swelling of the face, lips, or tongue chest pain cough difficulty breathing dizziness, drowsiness fever or infection joint aches or pains pale or blue-tinted skin redness, blistering, peeling or loosening of the skin, including inside the mouth tingling, burning, pain, or numbness in hands or feet unusual bleeding or bruising unusually weak or tired yellowing of eyes or skin Side effects that usually do not require medical attention (report to your doctor or health career center director if they continue or are bothersome): dark urine diarrhea headache loss of appetite nausea or vomiting temporary hair loss What may interact with this medicine? antacids containing magnesium trisilicate probenecid quinolone antibiotics like ciprofloxacin, lomefloxacin, norfloxacin and ofloxacin sulfinpyrazone What if I miss a dose? If you miss a dose, take it as soon as you can. If it is almost time for your next dose, take only that dose. Do not take double or extra doses. Where should I keep my medicine? Keep out of the reach of children. Store at room temperature between 15 and 30 degrees C (59 and 86 degrees F). Protect from light. Throw away any unused medicine after the expiration date. What should I tell my health care provider before I take this medicine? They need to know if you have any of these conditions: anemia diabetes [id number] dehydrogenase deficiency kidney disease liver disease lung disease other chronic illness an unusual or allergic reaction to nitrofurantoin, other antibiotics, other medicines, foods, dyes or preservatives or trying to get breast-feeding What should I watch for while using this medicine? Tell your doctor or health career center director if your symptoms do not improve or if you get new symptoms. Drink several glasses of water a day. If you are taking this medicine for a long time, visit your doctor for regular checks on your progress. If you are diabetic, you may get a false positive result for sugar in your urine with certain brands of urine tests. Check with your doctor. You have been given the following additional information: Bladder Infection, Female (Adult) Hypotension, Orthostatic Nitrofurantoin, Nitrofurantoin, Macrocrystalline Oral capsule (Electronically signed by Fitz Woods DO 05/14/2016 21:36)
== END 2016-05-14 17:30 | disposition home or self-care (01) ==
LOC: ED SRH 14:26
DX: I48.2 Chronic atrial fibrillation (principal); I95.2 Hypotension due to drugs; N30.00 Acute cystitis without hematuria; Z86.73 Personal history of transient ischemic attack (TIA), and cerebral infarction without residual deficits; I10 Essential (primary) hypertension; Z79.82 Long term (current) use of aspirin; Z79.51 Long term (current) use of inhaled steroids; Z88.2 Allergy status to sulfonamides
CPT/HCPCS: 81460; 90004; 90070; 90100; 90469; 90616; 91320; 91400; 91556; 91672; 92530; 92610; 92720; 95059

== ENCOUNTER 2016-07-06 11:01 | Emergency (ER) | payer OTHER, MEDICARE ==
--- NOTE | 2016-07-06 12:55 | ED CLINICAL REPORT ---
Clinical Report - Physicians/Mid Levels [facility] [address] [place] [address] 07/06/2016 11:01 Patient: BIPIN HOROWITZ Time Seen: 1102. Arrived- By ambulance. Historian- patient. HISTORY OF PRESENT ILLNESS Chief Complaint: "twitching". (twitching). This started yesterday, patient was last known well (yesterday) and is still present (staying the same). It was abrupt in onset and has been intermittent but is not gone now. At its maximum deficit described as mild. When seen in the E.D., deficit described as mild. No dizziness, altered mental status, seizure or blackouts. (recently started nystatin and nitrofurantoin. reports no pain/discomfort anywhere.). Similar symptoms previously: None. Recent medical care: Not recently seen/assessed. REVIEW OF SYSTEMS No fever, chest pain, difficulty breathing or skin rash. All systems otherwise negative, except as recorded above. PAST HISTORY See nurses notes. SOCIAL HISTORY Never smoker. No alcohol use or drug use. No recent travel. 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 ADDITIONAL NOTES The nursing notes have been reviewed. PHYSICAL EXAM Vital Signs: 07/06/2016 11:16 BP: 143/93. HR: 85. RR: 16. O2 saturation: 93%. Temp: 97.8 F. Pain level now: 0/10. Oxygen saturation normal. Appearance: Alert. No acute distress. Head: Head atraumatic. Eyes: Pupils equal, round and reactive to light. ENT: Normal ENT inspection. Airway intact. Pharynx normal. Neck: Normal inspection. Neck supple. CVS: Normal heart rate and rhythm. Heart sounds normal. Pulses normal. Respiratory: No respiratory distress. Breath sounds normal. Abdomen: Soft and nontender. No organomegaly. Back: Normal inspection. Skin: Skin warm and dry. Normal skin color. No rash. Normal skin turgor. Extremities: Extremities exhibit normal ROM. No lower extremity edema. Neuro: Alert. Oriented X 3. Mood/affect normal. Speech normal. Cranial nerves normal (as tested). No cerebellar findings. No abnormal finger-nose test. Normal gait. No motor deficit. No sensory deficit. (no tremor noted. patient occasionally with twitching like behavior of arms and legs bilaterally. no cogwheel rigidity. no leadpipe rigidity.). LABS, X-RAYS, AND EKG Laboratory Tests: UA-Culture if indicated: (GISSELL: 07/06/2016 11:45) ( [facility] 07/06/2016 12:34) Final results Test Result Flag Units (Reference) URINE COLOR YELLOW URINE APPEARANCE CLEAR URINE GLUCOSE NEGATIVE (NEGATIVE) URINE BILIRUBIN NEGATIVE (NEGATIVE) URINE KETONE NEGATIVE (NEGATIVE) URINE SPECIFIC GRAVITY 1.015 (1.010-1.030) URINE PH 8.0 (5.0-8.0) URINE PROTEIN NEGATIVE (NEGATIVE) URINE UROBILINOGEN 0.2 EU/dL (0.2-1.0) URINE NITRITE NEGATIVE (NEGATIVE) URINE BLOOD NEGATIVE (NEGATIVE) URINE LEUK ESTERASE TRACE (NEGATIVE) URINE RBC NONE SEEN rbc/hpf (0-1) URINE WBC 5-10 wbc/hpf (0-1) URINE EPITHELIAL CELLS 0-1 EPI/hpf (0-5) URINE BACTERIA FEW (1+) (NONE SEEN) URINE COMMENT CULTURE INDICATED 2+ AMORPHOUS PHOSPHATESURINE CULTURES ARE SET-UP BASED ON THE FOLLOWING CRITERIA:POSITIVE NITRITEPOSITIVE LEUKOCYTE ESTERASEGREATER THAN 10 WHITE BLOOD CELLSMODERATE (2+) OR GREATER BACTERIA CBC w Diff: (GISSELL: 07/06/2016 11:45) ( [facility] 07/06/2016 12:19) IP Test Result Flag Units (Reference) WHITE BLOOD COUNT 12.0 H K/uL (4.5-11.5) RED BLOOD COUNT 4.99 M/uL (4.00-5.20) HEMOGLOBIN 14.5 gm/dL (12.0-16.0) HEMATOCRIT 44.0 % (36.0-46.0) MEAN CELL VOLUME 88 fL (80-100) MEAN CORPUSCULAR HGB 29 pg (26-34) MEAN CORPUSCULAR HGB CONC 33 g/dL (31-37) RED CELL DISTRIBUTION WIDTH 14.9 H % (11.6-14.8) NEUTROPHIL % 61.3 % (50-75) LYMPH % 13.5 L % (25-40) MONO % 8.9 % (3-14) EOSINOPHIL % 15.6 H % (0-4) BASOPHIL % 0.7 % (0-2) CMP: (GISSELL: 07/06/2016 11:45) ( MsgRcvd 07/06/2016 12:10) Final results Test Result Flag Units (Reference) GLUCOSE 97 mg/dL (70-110) BUN 14 mg/dL (7-18) CREATININE 0.9 mg/dL (0.6-1.3) Estimated GFR >60 mL/min Estimated GFR- >60 mL/min Note: Persistent reduction over 3 months in eGFR<60 mL/min/1.73 m2 defines CKD. Patients with eGFR values>=60 mL/min/1.73 m2 may also have CKD if evidence ofpersistent proteinuria. Additional information may be foundat www.[email or web address].org. SODIUM 139 mmol/L (136-145) POTASSIUM 3.8 mmol/L (3.5-5.1) CHLORIDE 101 mmol/L (98-107) CARBON DIOXIDE 32 mmol/L (21-32) CALCIUM 9.0 mg/dL (8.5-10.1) TOTAL PROTEIN 7.4 g/dL (6.4-8.2) ALBUMIN 2.8 L g/dL (3.3-5.0) BILIRUBIN, TOTAL 0.5 mg/dL (0.0-1.0) ALKALINE PHOSPHATASE 80 U/L (46-116) AST (SGOT) 16 U/L (15-37) ALT (SGPT) 16 U/L (12-78) CPK 21 L U/L (24-260) . PROGRESS AND PROCEDURES Course of Care: the patient is a pleasant 80-year-old female presenting for evaluation of what was described as tremors. On examination, patient does not have any signs ofthis abnormality noted. Patient does have occasional twitching like abnormality while resting in bed. These are relatively infrequent and occur approximately once every 10-30 seconds. Patient is also noted to not have any of these while speaking to her and under distraction. Workup for any potential electrolyte abnormalities will be ordered including urinary tract infection. Lungs are clear in examination. Do not feel patient requires evaluation with chest x-ray given her current symptoms here in the emergency department and chief complaint. Patient is otherwise at baseline for her neural status. Do not feel patient will benefit from CT scan of the head. Patient is agreeable to the treatment and plan. Workup does not show any acute abnormalities. Electrolytes and urinalysis are otherwise normal. Head discussion with patient in regards to her workup here in the emergency department. Patient is a stable outpatient candidate. Had discussion with patient in regards to her workup, diagnosis, home care, follow-up, and return precautions. All questions have been answered. The patient expressed understanding of these instructions and was agreeable to them. Do not feel symptoms today areresult of his acute cerebrovascular accidents. Symptoms appear to be generalized. Do not feel that this is a seizure other manifestation of metabolic derangements. Disposition: Discharged. Condition: good. CLINICAL IMPRESSION 07/06/2016 11:16 BP: 143/93. HR: 85. RR: 16. O2 saturation: 93%. Temp: 97.8 F. Pain level now: 0/10. Hypertensive. Oxygen saturation normal. Essential tremor. acute. INSTRUCTIONS (speak with your doctor about the medications prescribed). Warnings: GENERAL WARNINGS: Return or contact your physician immediately if your condition worsens or changes unexpectedly, if not improving as expected, or if other problems arise. Specifically return if pain, vomiting, bleeding, breathing difficulty or fever. Your Current Medications: CONTINUE TAKING THE FOLLOWING MEDICATIONS: Albuterol Sulfate Inhalation : nebulizer daily. Aspirin Oral : Tablet Chewable 81 mg, 1 tablet. Atenolol Oral : Tablet 100 mg, 1-1/2 tablets daily. Clopidogrel Bisulfate Oral : Tablet 75 mg, 1 tablet daily. Diltiazem HCl Oral : 300 mg daily. FLUoxetine HCl Oral : Capsule 10 mg, 1 capsule 2x a day. Levothyroxine Sodium Oral : Tablet 75 mcg, 1 tablet daily. Memantine HCl Oral : Tablet 10 mg, 1 tablet, prn. Morphine Sulfate Injection. Namenda Oral : Tablet 10 mg, 1 tablet daily. Nitrofurantoin Oral : 100mg day, has not taken for last 5 days. Nitroglycerin Transdermal : 0.3 mg daily. Follow-up: Return to the emergency department as needed. Follow up with your doctor in three days. Reason for referral: recheck today's concerns. Screening today revealed the patient's blood pressure to be in the normal range. The patient should follow up with a primary care provider for blood pressure management. Understanding of the discharge instructions verbalized by patient. (Electronically signed by Marko Harrington Dr. 07/10/2016 16:16)
--- NOTE | 2016-07-06 12:55 | ED ORDER SUMMARY ---
..... Patient: BIPIN HOROWITZ OrderSheet [facility] VisitID: [id number] [address] [place] [address] 80y, F Registration Date/Time: 07/06/2016 ORDER SHEET Weight: 63.5 kg (stated) Allergies: Sulfa Antibiotics GENERAL ORDERS: CBC w Diff Urgent (11:07/06/2016 Jud Moeller) (Ack 11:17 Mariya) (11:58 SRoberts R.N.) CMP Urgent (11:07/06/2016 Jud Moeller) (Ack 11:17 Bricener) (11:58 SRoberts R.N.) UA-Culture if indicated Urgent (11:07/06/2016 Jud Moeller) (Ack 11:17 Bricener) (11:58 SRoberts R.N.) CPK Urgent (11:07/06/2016 Jud Moeller) (Ack 11:17 Bricener) (11:58 SRoberts R.N.) MEDICATION ORDERS: IV FLUIDS: IV NS : initial bolus 1000 mL (1000 mL/hr), then none - for X1 (NOW) (11:15 07/06/2016 Jud Moeller) (Ack 11:31 SRoberts R.N.) (11:58 SRoberts R.N.) ORDER SHEET NOTES: [Electronically signed by Caty Moyer R.N. (13:07/06/2016)] [Electronically signed by Marko Harrington Dr. (16:07/10/2016)] [Electronically locked/signed by Caty Moyer R.N. (13:07/06/2016)]
--- NOTE | 2016-07-06 12:55 | ED ORDER SUMMARY ---
..... Patient: BIPIN HOROWITZ OrderSheet [facility] VisitID: [id number] [address] [place] [address] 80y, F Registration Date/Time: 07/06/2016 ORDER SHEET Weight: 63.5 kg (stated) Allergies: Sulfa Antibiotics GENERAL ORDERS: CBC w Diff Urgent (11:07/06/2016 Jud Moeller) (Ack 11:17 Mariya) (11:58 SRoberts R.N.) CMP Urgent (11:07/06/2016 Jud Moeller) (Ack 11:17 Bricener) (11:58 SRoberts R.N.) UA-Culture if indicated Urgent (11:07/06/2016 Jud Moeller) (Ack 11:17 Bricener) (11:58 SRoberts R.N.) CPK Urgent (11:07/06/2016 Jud Moeller) (Ack 11:17 Bricener) (11:58 SRoberts R.N.) MEDICATION ORDERS: IV FLUIDS: IV NS : initial bolus 1000 mL (1000 mL/hr), then none - for X1 (NOW) (11:15 07/06/2016 Jud Moeller) (Ack 11:31 SRoberts R.N.) (11:58 SRoberts R.N.) ORDER SHEET NOTES: [Electronically signed by Caty Moyer R.N. (13:07/06/2016)] [Electronically signed by Marko Harrington Dr. (16:07/10/2016)] [Electronically locked/signed by Caty Moyer R.N. (13:07/06/2016)]
--- NOTE | 2016-07-06 12:55 | ED NURSING NOTES ---
Clinical Report - Nurses [facility] [address] [place] [address] 07/06/2016 11:01 Patient: BIPIN HOROWITZ TRIAGE Triage time 11:00. Acuity: LEVEL 3. Chief Complaint: (Started 2 new medicines yesterday for UTI. Twitching started today.). Alert. No acute distress. YANNA COMA SCORE: Enloe Coma Scale: 15- eyes open spontaneously (4); best verbal response- oriented x 4 (5); best motor response- obeys commands (6). --11:29 Caty Moyer R.N. 11:16 07/06/16. BP: 143/93. HR: 85. RR: 16. O2 saturation: 93%. Temp: 97.8 F (oral). Pain level now: 0/10. --11:29 Caty Moyer R.N. 11:16 07/06/16. BP: 143/93. HR: 85. RR: 16. O2 saturation: 93%. Temp: 97.8 F (oral). Pain level now: 0/10. --11:29 Caty Moyer R.N. Weight: 63.5 kg stated. Height/Length: 64 inches Per Patient. BMI: 24. --11:21 Caty Moyer R.N. Medications Albuterol Sulfate Inhalation nebulizer, daily. Aspirin Oral (Tablet Chewable 81 mg) 1 tablet. Atenolol Oral (Tablet 100 mg) 1-1/2 tablets, daily. Clopidogrel Bisulfate Oral (Tablet 75 mg) 1 tablet, daily. Diltiazem HCl Oral 300 mg, daily. FLUoxetine HCl Oral (Capsule 10 mg) 1 capsule, 2x a day. Levothyroxine Sodium Oral (Tablet 75 mcg) 1 tablet, daily. Memantine HCl Oral (Tablet 10 mg) 1 tablet, as needed. Namenda Oral (Tablet 10 mg) 1 tablet, daily. Nitroglycerin Transdermal 0.3 mg, daily. --11:26 Caty Moyer R.N. Morphine Sulfate Injection. Nitrofurantoin Oral 100mg day (has not taken for last 5 days. ). --11:28 Caty Moyer R.N. Allergies Sulfa Antibiotics. --11:26 Caty Moyer R.N. History Arrived by EMS. Historian: patient. Primary physician (kyra). The patient has had difficulty breathing (hx of lt lung partially removed.). No fever, weakness or cough. Denies muscle aches. 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 See EMS report. PAST MEDICAL HX: Immunizations: status is unknown. The patient has had a hysterectomy. SOCIAL HX: Smoker- current status unknown. No alcohol use or drug use. LEARNING NEEDS ASSESSMENT: The learning needs assessment revealed no barriers. FALL RISK ASSESSMENT: Fall risk assessment completed per protocol. FUNCTIONAL ASSESSMENT: Functional assessment performed: requires assistance with the activities of daily living; uses walker; wears glasses; cognitive impairment- senile dementia. SKIN INTEGRITY ASSESSMENT: Skin integrity risk assessment completed. No skin integrity risk identified. --11:29 Caty Moyer R.N. PROBLEMS: Lung Cancer. Coronary Artery Disease. Heart Disease. Weakness. Adverse Drug Reaction. Thyroid Disease. Headache. TIA - Transient Ischemic Attack. Congestive Heart Failure. Changed Mental Status. Lung Disease. Myocardial Infarction. Thrombocytopenia. Chest Pain. Vomiting. Dizziness. UTI - Urinary Tract Infection. Hypercholesterolemia. Hypertension. Immunizations. LNMP - Last Normal Menstrual Period. CAD. Emphysema. --11:14 Caty Moyer R.N. Atrial Fibrillation [RuleOut]. Hypotension [RuleOut]. CVA - Cerebrovascular Accident [RuleOut]. TIA - Transient Ischemic Attack [RuleOut]. --11:14 Caty Moyer R.N. ADDITIONAL SURGERIES: Adenoidectomy. Appendectomy. Hysterectomy. Lung Surgery. Tonsillectomy. --11:14 Caty Moyer R.N. Interventions ID band on patient. To room. --11:29 Caty Moyer R.N. PHYSICAL ASSESSMENT To room via stretcher. Patient gowned. GENERAL / NEURO / PSYCH: Alert. Oriented X 4. Appears in no acute distress. HEENT: No facial asymmetry noted. Mucous membranes are pink. RESPIRATORY: Respirations not labored. CVS: Capillary refill less than 2 seconds. GI / : Abdomen nontender. SKIN: Skin intact. Skin is warm and dry. Normal skin turgor. --11:30 Caty Moyer R.N. NURSING PROGRESS NOTES Patient gowned. Head of bed elevated. Two patient identifiers checked. Call light placed in reach. Side rails up x 2. Bed placed in lowest position. Brakes of bed on. Patient ready for evaluation. --11:31 Caty Moyer R.N. 11:34 07/06/2016 Site #1 started via IV in the left wrist with an 22g angiocath using a topical anesthetic; one attempt. Blood drawn: rainbow set. Labeled in the presence of the patient and sent to the lab. Saline lock flushed with 10 mL saline (Lactate drawn.). --11:57 Caty Moyer R.N. 11:58 07/06/2016 Started bag #1 1000 mL IV Fluids IV NS (Saline); at 1000 mL/hr over 1 hour(s) via site #1 via IV pump. Allergies verified and confirmed 5 rights. IV patency established. IV site checked: no pain, redness, or swelling. IV flushed thoroughly pre- and post-medication administration. --11:58 Caty Moyer R.N. Patient ID band checked for patient name: patient confirmed. Catheterized urine collected with return of yellow-colored clear urine; sample sent to lab for urinalysis and culture. Specimen labeled in the presence of the patient. --11:59 Caty Moyer R.N. ( Caregiver at the bedside.). --12:00 Caty Moyer R.N. 11:52 07/06/2016 Two (2) unsuccessful IV access attempts including the left forearm and wrist. --12:07 Renata Felder R.N. 12:51 07/06/2016 IV Fluids IV NS Discontinued: bag #1 infused. Total amount infused: 1000 mL. IV patency established. IV site checked: no pain, redness, or swelling. IV flushed thoroughly. --12:56 Caty Moyer R.N. DISPOSITION / DISCHARGE 1320. Condition at departure: improved. No learning barriers present. Discharge instructions provided and reviewed with the patient. Patient verbalized understanding. Written instructions provided in Turkish. The patient was discharged home and accompanied by caregiver. She left the Emergency Department in a wheelchair and via private vehicle. Driving (caregiver). Medication list reviewed and validated. --13:30 Caty Moyer R.N. <<STRICKEN ENTRY-- 13:07/06/16. BP: 146/72. HR: 76. RR: 18. O2 saturation: 94%. Temp: deferred. Pain level now: 0/10. 12:07/06/16. BP: 145/71. HR: 80. RR: 16. O2 saturation: 94% on room air. 11:07/06/16. BP: 143/93. HR: 85. RR: 16. O2 saturation: 93%. Temp: 97.8 F (oral). Pain level now: 0/10. --13:30 Caty Moyer R.N. --END STRIKE>> Correction --13:31 Caty Moyer R.N. 13:07/06/16. BP: 146/72. HR: 76. RR: 18. O2 saturation: 94%. Temp: deferred. Pain level now: 0/10. 12:07/06/16. BP: 145/71. HR: 80. RR: 16. O2 saturation: 94% on room air. 11:07/06/16. BP: 143/93. HR: 85. RR: 16. O2 saturation: 93%. Temp: 97.8 F (oral). Pain level now: 0/10. --13:30 Caty Moyer R.N. Locked/Released at 07/06/2016 13:31 by Caty Moyer R.N.
--- NOTE | 2016-07-10 16:16 | ED MAR SUMMARY ---
..... Medication Administration Record [facility] [address] [place] [address] Patient: BIPIN HOROWITZ Visit ID: [id number] 80y, F Weight: 63.5 kg Height/Length: 64 in BMI: 24 ALLERGIES: Sulfa Antibiotics Start 11:58 07/06/2016 Caty Moyer R.N., Stop 12:51 07/06/2016 Caty Moyer R.N. Medication Administered: IV NS (SALINE), Dose: IV Fluids over 1 hour(s), Rate: 1000 mL/hr, Dispensed: 1000 mL bag, Site: #1 left wrist. Medication Ordered: IV NS : initial bolus 1000 mL (1000 mL/hr), then none - for X1 (NOW).
--- NOTE | 2016-07-10 16:16 | ED MED RECONCILIATION SUMMARY ---
Patient: BIPIN HOROWITZ Medication Reconciliation Report [facility] VisitID: [id number] [address] [place] [address] 80y, F Registration Date/Time: 07/06/2016 Weight: 63.5 kg Height/Length: 64 in. BMI: 24.0 ALLERGIES: Sulfa Antibiotics The patient's Home Medications are listed below: CONTINUE TAKING THE FOLLOWING MEDICATIONS: Albuterol Sulfate Inhalation nebulizer, daily Aspirin Oral (81 mg) 1 tablet Atenolol Oral (100 mg) 1-1/2 tablets, daily Clopidogrel Bisulfate Oral (75 mg) 1 tablet, daily Diltiazem HCl Oral 300 mg, daily FLUoxetine HCl Oral (10 mg) 1 capsule, 2x a day Levothyroxine Sodium Oral (75 mcg) 1 tablet, daily Memantine HCl Oral (10 mg) 1 tablet Morphine Sulfate Injection Namenda Oral (10 mg) 1 tablet, daily Nitrofurantoin Oral 100mg day, has not taken for last 5 days. Nitroglycerin Transdermal 0.3 mg, daily The source(s) of the original Home Medication information: Not obtained. The following Medications were given to the patient in the Emergency Department: IV NS IV Fluids bolus 0, then 1000 mL/hr, administered: 07/06/2016 11:58:00 AM The following Medications were prescribed to the patient: None.
--- NOTE | 2016-07-10 16:16 | ED DISCHARGE INSTRUCTIONS ---
Patient: BIPIN HOROWITZ General Instructions [facility] VisitID: [id number] [address] [place] [address] 80y, F Registration Date/Time: 07/06/2016 07/06/2016 11:16 BP: 143/93. HR: 85. RR: 16. O2 saturation: 93%. Temp: 97.8 F. Pain level now: 0/10. Hypertensive. Oxygen saturation normal. Essential tremor. acute. INSTRUCTIONS (speak with your doctor about the medications prescribed). Warnings: GENERAL WARNINGS: Return or contact your physician immediately if your condition worsens or changes unexpectedly, if not improving as expected, or if other problems arise. Specifically return if pain, vomiting, bleeding, breathing difficulty or fever. Your Current Medications: CONTINUE TAKING THE FOLLOWING MEDICATIONS: Albuterol Sulfate Inhalation : nebulizer daily. Aspirin Oral : Tablet Chewable 81 mg, 1 tablet. Atenolol Oral : Tablet 100 mg, 1-1/2 tablets daily. Clopidogrel Bisulfate Oral : Tablet 75 mg, 1 tablet daily. Diltiazem HCl Oral : 300 mg daily. FLUoxetine HCl Oral : Capsule 10 mg, 1 capsule 2x a day. Levothyroxine Sodium Oral : Tablet 75 mcg, 1 tablet daily. Memantine HCl Oral : Tablet 10 mg, 1 tablet, prn. Morphine Sulfate Injection. Namenda Oral : Tablet 10 mg, 1 tablet daily. Nitrofurantoin Oral : 100mg day, has not taken for last 5 days. Nitroglycerin Transdermal : 0.3 mg daily. Follow-up: Return to the emergency department as needed. Follow up with your doctor in three days. Reason for referral: recheck today's concerns. Screening today revealed the patient's blood pressure to be in the normal range. The patient should follow up with a primary care provider for blood pressure management. Understanding of the discharge instructions verbalized by patient. (Electronically signed by Marko Harrington Dr. 07/10/2016 16:16)
--- NOTE | 2016-07-10 16:16 | ED MED RECONCILIATION SUMMARY ---
Patient: BIPIN HOROWITZ Medication Reconciliation Report [facility] VisitID: [id number] [address] [place] [address] 80y, F Registration Date/Time: 07/06/2016 Weight: 63.5 kg Height/Length: 64 in. BMI: 24.0 ALLERGIES: Sulfa Antibiotics The patient's Home Medications are listed below: CONTINUE TAKING THE FOLLOWING MEDICATIONS: Albuterol Sulfate Inhalation nebulizer, daily Aspirin Oral (81 mg) 1 tablet Atenolol Oral (100 mg) 1-1/2 tablets, daily Clopidogrel Bisulfate Oral (75 mg) 1 tablet, daily Diltiazem HCl Oral 300 mg, daily FLUoxetine HCl Oral (10 mg) 1 capsule, 2x a day Levothyroxine Sodium Oral (75 mcg) 1 tablet, daily Memantine HCl Oral (10 mg) 1 tablet Morphine Sulfate Injection Namenda Oral (10 mg) 1 tablet, daily Nitrofurantoin Oral 100mg day, has not taken for last 5 days. Nitroglycerin Transdermal 0.3 mg, daily The source(s) of the original Home Medication information: Not obtained. The following Medications were given to the patient in the Emergency Department: IV NS IV Fluids bolus 0, then 1000 mL/hr, administered: 07/06/2016 11:58:00 AM The following Medications were prescribed to the patient: None.
--- NOTE | 2016-07-10 16:16 | ED DISCHARGE INSTRUCTIONS ---
Patient: BIPIN HOROWITZ General Instructions [facility] VisitID: [id number] [address] [place] [address] 80y, F Registration Date/Time: 07/06/2016 07/06/2016 11:16 BP: 143/93. HR: 85. RR: 16. O2 saturation: 93%. Temp: 97.8 F. Pain level now: 0/10. Hypertensive. Oxygen saturation normal. Essential tremor. acute. INSTRUCTIONS (speak with your doctor about the medications prescribed). Warnings: GENERAL WARNINGS: Return or contact your physician immediately if your condition worsens or changes unexpectedly, if not improving as expected, or if other problems arise. Specifically return if pain, vomiting, bleeding, breathing difficulty or fever. Your Current Medications: CONTINUE TAKING THE FOLLOWING MEDICATIONS: Albuterol Sulfate Inhalation : nebulizer daily. Aspirin Oral : Tablet Chewable 81 mg, 1 tablet. Atenolol Oral : Tablet 100 mg, 1-1/2 tablets daily. Clopidogrel Bisulfate Oral : Tablet 75 mg, 1 tablet daily. Diltiazem HCl Oral : 300 mg daily. FLUoxetine HCl Oral : Capsule 10 mg, 1 capsule 2x a day. Levothyroxine Sodium Oral : Tablet 75 mcg, 1 tablet daily. Memantine HCl Oral : Tablet 10 mg, 1 tablet, prn. Morphine Sulfate Injection. Namenda Oral : Tablet 10 mg, 1 tablet daily. Nitrofurantoin Oral : 100mg day, has not taken for last 5 days. Nitroglycerin Transdermal : 0.3 mg daily. Follow-up: Return to the emergency department as needed. Follow up with your doctor in three days. Reason for referral: recheck today's concerns. Screening today revealed the patient's blood pressure to be in the normal range. The patient should follow up with a primary care provider for blood pressure management. Understanding of the discharge instructions verbalized by patient. (Electronically signed by Marko Harrington Dr. 07/10/2016 16:16)
--- NOTE | 2016-07-10 16:16 | ED MAR SUMMARY ---
..... Medication Administration Record [facility] [address] [place] [address] Patient: BIPIN HOROWITZ Visit ID: [id number] 80y, F Weight: 63.5 kg Height/Length: 64 in BMI: 24 ALLERGIES: Sulfa Antibiotics Start 11:58 07/06/2016 Caty Moyer R.N., Stop 12:51 07/06/2016 Caty Moyer R.N. Medication Administered: IV NS (SALINE), Dose: IV Fluids over 1 hour(s), Rate: 1000 mL/hr, Dispensed: 1000 mL bag, Site: #1 left wrist. Medication Ordered: IV NS : initial bolus 1000 mL (1000 mL/hr), then none - for X1 (NOW).
== END 2016-07-06 13:20 | disposition home or self-care (01) ==
LOC: ED SRH 11:01
DX: G25.0 Essential tremor (principal); Z79.899 Other long term (current) drug therapy; I11.0 Hypertensive heart disease with heart failure; I50.9 Heart failure, unspecified; I25.10 Atherosclerotic heart disease of native coronary artery without angina pectoris; Z86.73 Personal history of transient ischemic attack (TIA), and cerebral infarction without residual deficits; I25.2 Old myocardial infarction; Z85.118 Personal history of other malignant neoplasm of bronchus and lung; Z90.710 Acquired absence of both cervix and uterus; Z79.82 Long term (current) use of aspirin
CPT/HCPCS: 90004; 90100; 90469; 92610; 95059

== ENCOUNTER 2016-07-08 13:13 | Outpatient (CLI) | payer OTHER, MEDICARE ==
--- NOTE | 2016-07-08 14:00 | DIAGNOSTIC IMAGING REPORT ---
PROCEDURE: CT THORAX WITHOUT CONTRAST INDICATION: LUNG CA TECHNIQUE: Noncontrast axial images were obtained of the chest with coronal and sagittal reformations. COMPARISON: Chest x-ray 05/14/[address] chest 05/13/2014. FINDINGS: Marked progression of 5.2 x 7.1 cm right upper lobe nodule (previously 2.4 x 1.6 cm) with some dystrophic calcifications. There is subsegmental atelectasis of the right middle lobe with several sub centimeter nodules. There are also multiple pleural based nodules in the right upper and lower lobes, largest 1.2 cm. Slight progression of two patchy opacities in the right upper lobe. Progression of small bilateral pleural effusions. Slight progression of superior several and pretracheal nodes (7 mm short axis). Left upper lobectomy and left hemithorax volume loss, unchanged. Mild emphysematous changes. IMPRESSION: 1.
== END 2016-07-08 23:00 | disposition home or self-care (01) ==
LOC: CT SRH 13:13
DX: D69.6 Thrombocytopenia, unspecified (principal); R91.8 Other nonspecific abnormal finding of lung field; K44.9 Diaphragmatic hernia without obstruction or gangrene; J90 Pleural effusion, not elsewhere classified; N28.89 Other specified disorders of kidney and ureter; Z98.890 Other specified postprocedural states; Z85.118 Personal history of other malignant neoplasm of bronchus and lung

== ENCOUNTER 2016-07-17 15:16 | Emergency (ER) | payer OTHER, MEDICARE ==
--- NOTE | 2016-07-17 17:05 | ED ORDER SUMMARY ---
..... Patient: BIPIN HOROWITZ OrderSheet [facility] VisitID: [id number] [place] [address] 81y, F Registration Date/Time: 07/17/2016 ORDER SHEET Weight: 63.0 kg (stated) Allergies: Sulfa Antibiotics GENERAL ORDERS: Shoulder 2V or more Left Urgent (15:50 07/17/2016 Rylie REAVES) (Ack 16:07 Jeanine) (16:20 Yuri) Elbow 3 or 4V Left Urgent (15:50 07/17/2016 Rylie REAVES) (Ack 16:07 Jeanine) (16:20 Yuri) UA-Culture if indicated Urgent (15:50 07/17/2016 Rylie REAVES) (16:01 Gael R.N.) Sling - arm (16:59 07/17/2016 Rylie REAVES) (17:00 Gael R.N.) MEDICATION ORDERS: IV FLUIDS: ORDER SHEET NOTES: [Electronically signed by Cheyanne Rich R.N. (19:31 07/18/2016)] [Electronically signed by Lucien Nevarez MD (03:57 07/19/2016)] [Electronically locked/signed by Cheyanne Rich R.N. (:31 07/18/2016)]
--- NOTE | 2016-07-17 17:05 | ED ORDER SUMMARY ---
..... Patient: BIPIN HOROWITZ OrderSheet [facility] VisitID: [id number] [place] [address] 81y, F Registration Date/Time: 07/17/2016 ORDER SHEET Weight: 63.0 kg (stated) Allergies: Sulfa Antibiotics GENERAL ORDERS: Shoulder 2V or more Left Urgent (15:50 07/17/2016 Rylie REAVES) (Ack 16:07 Jeanine) (16:20 Yuri) Elbow 3 or 4V Left Urgent (15:50 07/17/2016 Rylie REAVES) (Ack 16:07 Jeanine) (16:20 Yuri) UA-Culture if indicated Urgent (15:50 07/17/2016 Rylie REAVES) (16:01 Gael R.N.) Sling - arm (16:59 07/17/2016 Rylie REAVES) (17:00 Gael R.N.) MEDICATION ORDERS: IV FLUIDS: ORDER SHEET NOTES: [Electronically signed by Cheyanne Rich R.N. (19:31 07/18/2016)] [Electronically signed by Lucien Nevarez MD (03:57 07/19/2016)] [Electronically locked/signed by Cheyanne Rich R.N. (:31 07/18/2016)]
--- NOTE | 2016-07-17 17:05 | ED CLINICAL REPORT ---
Clinical Report - Physicians/Mid Levels [facility] [address] [place] [address] 07/17/2016 15:17 Patient: BIPIN HOROWITZ Time Seen: 15:34. Arrived- By private vehicle. Historian- patient. HISTORY OF PRESENT ILLNESS Chief Complaint: FALL. Location of injuries- left arm. The injury occurred just prior to arrival. Occurred at home. ( Patient has a history of metastatic lung cancer. She is going into hospice this week. She fell out of bed and struck her left elbow and is reporting pain there. Additionally she has noted bright red blood in her urine since then she denies any pain with urination and denies any pelvic or abdominal pain or chest pain.). Fell out of bed. The patient complains of mild pain and moderate pain. No blow to the head, neck pain or loss of consciousness. REVIEW OF SYSTEMS No chills, fever, sweats, calf pain or chest pain. No cough, pedal edema, palpitations, abdominal pain or constipation. No diarrhea, nausea, vomiting or urinary problems. She has had difficulty breathing (chronically). It has been similar to previous symptoms. All systems otherwise negative, except as recorded above. SOCIAL HISTORY Former smoker, end date 1996. No alcohol use or drug use. FAMILY HISTORY Denies family medical history. ADDITIONAL NOTES The nursing notes have been reviewed. PHYSICAL EXAM Vital Signs: 07/17/2016 15:27 BP: 128/78. HR: 89. RR: 12. O2 saturation: 92%. Temp: 97.5 F. Pain level now: 5/10. Have been reviewed. Appearance: Alert. No acute distress. Eyes: Pupils equal, round and reactive to light. EOM intact. ENT: No dental injury. Pharynx normal. Neck: Painless ROM. Non-tender. No vertebral tenderness. CVS: Heart sounds normal. Pulses normal. Respiratory: Decreased breath sounds. Abdomen: No visible injury. Soft and nontender. Bowel sounds normal. No organomegaly. No mass. Back: ROM normal. (kyphotic). Skin: Skin intact. Skin warm and dry. Extremities: Left shoulder. Neurovascular intact distally. No erythema, tenderness, swelling or ecchymosis. Not localized to the humeral head. No joint effusion or limitation in ROM. Left elbow: mild tenderness and small ecchymosis. Limited ROM secondary to pain (diminished flexion and supination). Neurovascular intact distally. No erythema, swelling or laceration. Pelvis stable. LABS, X-RAYS, AND EKG X-Rays: Left elbow negative. Lt Shoulder X-ray: (PROCEDURE: XR SHOULDER 2 OR MORE VW-LEFT INDICATION: FALL TECHNIQUE: Three views. COMPARISON: None. FINDINGS: Downsloping acromion with large inferior spur and narrowing of the glenohumeral joint superiorly suspicious for rotator cuff tear. 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 Moderate AC joint degenerative changes. No fracture, dislocation or suspicious osseous lesion. Left hilar surgical changes. IMPRESSION: 1. Findings suggestive of a rotator cuff tear 2. Moderate AC joint degenerative changes 3. 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 The X-rays were interpreted by the radiologist and contemporaneously by me. Laboratory Tests: UA-Culture if indicated: (GISSELL: 07/17/2016 15:55) ( MsgRcvd 07/17/2016 16:24) Final results Test Result Flag Units (Reference) URINE COLOR RED URINE APPEARANCE CLOUDY URINE GLUCOSE NEGATIVE (NEGATIVE) URINE BILIRUBIN ICTOTEST NEGATIVE (NEGATIVE) URINE KETONE 1+ (NEGATIVE) URINE SPECIFIC GRAVITY 1.010 (1.010-1.030) URINE PH 8.5 H (5.0-8.0) URINE PROTEIN 3+ (NEGATIVE) URINE UROBILINOGEN 2.0 EU/dL (0.2-1.0) The urobilinogen reagent area may react with interferingsubstances known to react with Annie's reagent such asp-aminosalicylic acid and sulfonamides. Atypical colorreactions may be obtained in the presence of highconcentrations of p-aminobenzoic acid. The absence ofurobilinogen cannot be determined with this test. URINE NITRITE POSITIVE (NEGATIVE) URINE BLOOD 3+ (NEGATIVE) URINE LEUK ESTERASE POSITIVE (NEGATIVE) URINE RBC >100 rbc/hpf (0-1) URINE WBC 25-50 wbc/hpf (0-1) URINE EPITHELIAL CELLS RARE EPI/hpf (0-5) URINE BACTERIA MANY (4+) (NONE SEEN) URINE COMMENT CULTURE INDICATED URINE CULTURES ARE SET-UP BASED ON THE FOLLOWING CRITERIA:POSITIVE NITRITEPOSITIVE LEUKOCYTE ESTERASEGREATER THAN 10 WHITE BLOOD CELLSMODERATE (2+) OR GREATER BACTERIA . PROGRESS AND PROCEDURES Course of Care: Patient is stable. Patient/family counseled. Old medical records reviewed. Disposition: Discharged. Condition: stable. CLINICAL IMPRESSION Gross hematuria (with asymptomatic bacteriuria). Contusion to the left elbow. Fall from bed. INSTRUCTIONS Apply ice for 20 minutes four times a day until better. Don't apply ice directly to skin and don't use while asleep. Wear simple sling until better. No driving or operating machinery while taking medication. Warnings: COMPLICATIONS: Complications from this condition are possible. Future problems may include loss of function and pain. GENERAL WARNINGS: Return or contact your physician immediately if your condition worsens or changes unexpectedly, if not improving as expected, or if other problems arise. Prescription Medications: Tylenol with Codeine #3 (30 mg / 300 mg): take 1 tablet every 4 hours as needed for pain. Dispense fifteen (15). No refills. Substitution is permissible. Follow-up: Follow up with your doctor as needed. Understanding of the discharge instructions verbalized by patient and family. (Electronically signed by Lucien Nevarez MD 07/19/2016 3:57) Addenda for BIPIN HOROWITZ VisitID: [id number] Date: 07/17/2016 07/18/2016 13:51 Called pt and spoke with patients caregiver, Santa Boyce. Per caregiver Allison KANG, did not want patient treated due to pt getting thrush in the past and patient is asymptomatic Educated PEARL Peres to call ER if they elect to start patient on abx, gave direct phone number. PA aware. (Electronically signed by Jurgen Reynolds R.N. - 07/18/2016 13:51)
--- NOTE | 2016-07-17 17:05 | ED NURSING NOTES ---
Clinical Report - Nurses [facility] [address] [place] [address] 07/17/2016 15:17 Patient: BIPIN HOROWITZ TRIAGE Triage time 15:28 Jul 17 2016. Acuity: LEVEL 3. Chief Complaint: LEFT UPPER EXTREMITY PAIN. Location of symptoms- left arm. Alert. YANNA COMA SCORE: [place] Coma Scale: 14- eyes open spontaneously (4); best verbal response- disoriented (4); best motor response- obeys commands (6). --15:35 Cheyanne Rich R.N. 15:27 07/17/16. BP: 128/78. HR: 89. RR: 12. O2 saturation: 92%. Temp: 97.5 F. Pain level now: 10. --15:35 Cheyanne Rich R.N. Weight: 63 kg stated. Height/Length: 65 inches Per Patient. BMI: 23.1. --15:36 Cheyanne Rich R.N. Medications Albuterol Sulfate Inhalation nebulizer, daily. Aspirin Oral (Tablet Chewable 81 mg) 1 tablet. Atenolol Oral (Tablet 100 mg) 1-1/2 tablets, daily. Clopidogrel Bisulfate Oral (Tablet 75 mg) 1 tablet, daily. Diltiazem HCl Oral 300 mg, daily. FLUoxetine HCl Oral (Capsule 10 mg) 1 capsule, 2x a day. Levothyroxine Sodium Oral (Tablet 75 mcg) 1 tablet, daily. Memantine HCl Oral (Tablet 10 mg) 1 tablet, as needed. Namenda Oral (Tablet 10 mg) 1 tablet, daily. Nitroglycerin Transdermal 0.3 mg, daily. --15:30 Cheyanne Rich R.N. Medication/allergy information source: the patient's family. --15:35 Cheyanne Rich R.N. Allergies Sulfa Antibiotics. --15:30 Cheyanne Rich R.N. History Arrived by private vehicle. 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 Accompanied by family. Injury occurred. Location of injuries: left arm. This occurred today (at 1045 AM). Occurred at home. ( patient fell out of bed and hit left upper arm.). Treatment REFRIGERATING TECHNICIAN: None. PAST MEDICAL HX: The patient has had a hysterectomy. Denies current . Tetanus immunization status is not up-to-date. Immunizations not up to date. SOCIAL HX: Former smoker, end date 1996. No alcohol use or drug use. No infectious disease exposure. SELF HARM ASSESSMENT: A self harm assessment was performed. The patient answered "no" to the question "Do you have thoughts of harming or killing yourself?". FALL RISK ASSESSMENT: Fall risk assessment completed. No fall risk identified. NUTRITIONAL RISK ASSESSMENT: The nutritional risk assessment revealed no deficiencies. FUNCTIONAL ASSESSMENT: Functional assessment: no impairments noted. LEARNING NEEDS ASSESSMENT: The learning needs assessment revealed no barriers. ABUSE ASSESSMENT: Abuse assessment: The patient was asked "Do you feel safe in your home?". SKIN INTEGRITY ASSESSMENT: Skin integrity risk assessment completed. No skin integrity risk identified. --15:35 Cheyanne Rich R.N. PROBLEMS: Tremor. Lung Cancer. Coronary Artery Disease. Heart Disease. Weakness. Adverse Drug Reaction. Thyroid Disease. Headache. TIA - Transient Ischemic Attack. Congestive Heart Failure. Changed Mental Status. Lung Disease. Myocardial Infarction. Thrombocytopenia. Chest Pain. Vomiting. UTI - Urinary Tract Infection. Hypercholesterolemia. Hypertension. Immunizations. LNMP - Last Normal Menstrual Period. CAD. Emphysema. --15:31 Cheyanne Rich R.N. Atrial Fibrillation [RuleOut]. Hypotension [RuleOut]. CVA - Cerebrovascular Accident [RuleOut]. TIA - Transient Ischemic Attack [RuleOut]. --15:31 Cheyanne Rich R.N. ADDITIONAL SURGERIES: Adenoidectomy. Appendectomy. Hysterectomy. Lung Surgery. Tonsillectomy. --15:31 Cheyanne Rich R.N. Interventions ID band on patient. To room. --15:35 Cheyanne Rich R.N. PHYSICAL ASSESSMENT To room via wheelchair. GENERAL / NEURO / PSYCH: Oriented X 4. Alert. Appears in no acute distress. CVS: Capillary refill is greater than 2 seconds. EXTREMITIES: Limited ROM present in the left upper arm. Neuro-vascular status intact to the extremity. No injury to the left arm. SKIN: Skin is warm and dry. --15:36 Cheyanne Rich R.N. NURSING PROGRESS NOTES Patient gowned. Two patient identifiers checked. Call light placed in reach. Side rails up x 1. Bed placed in lowest position. Brakes of bed on. Patient ready for evaluation- chart flagged. --15:37 Cheyanne Rich R.N. Checked patient name and birthdate: patient confirmed. Instructions provided to collect clean catch urine and patient verbalized understanding. Catheterized urine collected with return of red-colored clear urine; sample sent to lab for urinalysis and culture. Specimen labeled in the presence of the patient. --16:01 Cheyanne Rich R.N. 17:20. Sling applied to left arm by optoelectronic technician; distal pulses intact, sensation intact and motor function within normal limits. --17:58 [facility] ( Patient transported to the car via wheel chair and helped into the car.). --18:08 [facility]. DISPOSITION / DISCHARGE Fall risk assessment completed. Risk factors identified include patient age greater than 65 years, history of fall and impairment of mobility. --17:09 Cheyanne Rich R.N. 17:07 07/17/16. BP: 118/93. HR: 87. O2 saturation: 93%. --17:09 Cheyanne Rich R.N. Departure time: 17:20 Jul 17 2016. No learning barriers present. Discharge instructions provided and reviewed with the patient. Reviewed medication(s) side effects, precautions and dosing information. Prescription(s) given to the power plant assistant. Medication(s) course not reviewed. Treatments reviewed (bed rails). Reviewed referral to a primary care physician. Family verbalized understanding. Caregiver verbalized understanding. Written instructions not provided in Malay. The patient was discharged home and accompanied by family. She left the Emergency Department in a wheelchair and via private vehicle. Family member driving. --17:20 Cheyanne Rich R.N. Locked/Released at 07/18/2016 19:31 by Cheyanne Rich R.N.
--- NOTE | 2016-07-17 17:05 | ED NURSING NOTES ---
Clinical Report - Nurses [facility] [address] [place] [address] 07/17/2016 15:17 Patient: BIPIN HOROWITZ TRIAGE Triage time 15:28 Jul 17 2016. Acuity: LEVEL 3. Chief Complaint: LEFT UPPER EXTREMITY PAIN. Location of symptoms- left arm. Alert. YANNA COMA SCORE: [place] Coma Scale: 14- eyes open spontaneously (4); best verbal response- disoriented (4); best motor response- obeys commands (6). --15:35 Cheyanne Rich R.N. 15:27 07/17/16. BP: 128/78. HR: 89. RR: 12. O2 saturation: 92%. Temp: 97.5 F. Pain level now: 10. --15:35 Cheyanne Rich R.N. Weight: 63 kg stated. Height/Length: 65 inches Per Patient. BMI: 23.1. --15:36 Cheyanne Rich R.N. Medications Albuterol Sulfate Inhalation nebulizer, daily. Aspirin Oral (Tablet Chewable 81 mg) 1 tablet. Atenolol Oral (Tablet 100 mg) 1-1/2 tablets, daily. Clopidogrel Bisulfate Oral (Tablet 75 mg) 1 tablet, daily. Diltiazem HCl Oral 300 mg, daily. FLUoxetine HCl Oral (Capsule 10 mg) 1 capsule, 2x a day. Levothyroxine Sodium Oral (Tablet 75 mcg) 1 tablet, daily. Memantine HCl Oral (Tablet 10 mg) 1 tablet, as needed. Namenda Oral (Tablet 10 mg) 1 tablet, daily. Nitroglycerin Transdermal 0.3 mg, daily. --15:30 Cheyanne Rich R.N. Medication/allergy information source: the patient's family. --15:35 Cheyanne Rich R.N. Allergies Sulfa Antibiotics. --15:30 Cheyanne Rich R.N. History Arrived by private vehicle. 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 Accompanied by family. Injury occurred. Location of injuries: left arm. This occurred today (at 1045 AM). Occurred at home. ( patient fell out of bed and hit left upper arm.). Treatment FINISHER SCREWDOWN: None. PAST MEDICAL HX: The patient has had a hysterectomy. Denies current . Tetanus immunization status is not up-to-date. Immunizations not up to date. SOCIAL HX: Former smoker, end date 1996. No alcohol use or drug use. No infectious disease exposure. SELF HARM ASSESSMENT: A self harm assessment was performed. The patient answered "no" to the question "Do you have thoughts of harming or killing yourself?". FALL RISK ASSESSMENT: Fall risk assessment completed. No fall risk identified. NUTRITIONAL RISK ASSESSMENT: The nutritional risk assessment revealed no deficiencies. FUNCTIONAL ASSESSMENT: Functional assessment: no impairments noted. LEARNING NEEDS ASSESSMENT: The learning needs assessment revealed no barriers. ABUSE ASSESSMENT: Abuse assessment: The patient was asked "Do you feel safe in your home?". SKIN INTEGRITY ASSESSMENT: Skin integrity risk assessment completed. No skin integrity risk identified. --15:35 Cheyanne Rich R.N. PROBLEMS: Tremor. Lung Cancer. Coronary Artery Disease. Heart Disease. Weakness. Adverse Drug Reaction. Thyroid Disease. Headache. TIA - Transient Ischemic Attack. Congestive Heart Failure. Changed Mental Status. Lung Disease. Myocardial Infarction. Thrombocytopenia. Chest Pain. Vomiting. UTI - Urinary Tract Infection. Hypercholesterolemia. Hypertension. Immunizations. LNMP - Last Normal Menstrual Period. CAD. Emphysema. --15:31 Cheyanne Rich R.N. Atrial Fibrillation [RuleOut]. Hypotension [RuleOut]. CVA - Cerebrovascular Accident [RuleOut]. TIA - Transient Ischemic Attack [RuleOut]. --15:31 Cheyanne Rich R.N. ADDITIONAL SURGERIES: Adenoidectomy. Appendectomy. Hysterectomy. Lung Surgery. Tonsillectomy. --15:31 Cheyanne Rich R.N. Interventions ID band on patient. To room. --15:35 Cheyanne Rich R.N. PHYSICAL ASSESSMENT To room via wheelchair. GENERAL / NEURO / PSYCH: Oriented X 4. Alert. Appears in no acute distress. CVS: Capillary refill is greater than 2 seconds. EXTREMITIES: Limited ROM present in the left upper arm. Neuro-vascular status intact to the extremity. No injury to the left arm. SKIN: Skin is warm and dry. --15:36 Cheyanne Rich R.N. NURSING PROGRESS NOTES Patient gowned. Two patient identifiers checked. Call light placed in reach. Side rails up x 1. Bed placed in lowest position. Brakes of bed on. Patient ready for evaluation- chart flagged. --15:37 Cheyanne Rich R.N. Checked patient name and birthdate: patient confirmed. Instructions provided to collect clean catch urine and patient verbalized understanding. Catheterized urine collected with return of red-colored clear urine; sample sent to lab for urinalysis and culture. Specimen labeled in the presence of the patient. --16:01 Cheyanne Rich R.N. 17:20. Sling applied to left arm by civil technician; distal pulses intact, sensation intact and motor function within normal limits. --17:58 [facility] ( Patient transported to the car via wheel chair and helped into the car.). --18:08 [facility]. DISPOSITION / DISCHARGE Fall risk assessment completed. Risk factors identified include patient age greater than 65 years, history of fall and impairment of mobility. --17:09 Cheyanne Rich R.N. 17:07 07/17/16. BP: 118/93. HR: 87. O2 saturation: 93%. --17:09 Cheyanne Rich R.N. Departure time: 17:20 Jul 17 2016. No learning barriers present. Discharge instructions provided and reviewed with the patient. Reviewed medication(s) side effects, precautions and dosing information. Prescription(s) given to the senior market intelligence consultant. Medication(s) course not reviewed. Treatments reviewed (bed rails). Reviewed referral to a primary care physician. Family verbalized understanding. Caregiver verbalized understanding. Written instructions not provided in Romanian. The patient was discharged home and accompanied by family. She left the Emergency Department in a wheelchair and via private vehicle. Family member driving. --17:20 Cheyanne Rich R.N. Locked/Released at 07/18/2016 19:31 by Cheyanne Rich R.N.
--- NOTE | 2016-07-17 17:15 | DIAGNOSTIC IMAGING REPORT ---
PROCEDURE: XR SHOULDER 2 OR MORE VW-LEFT INDICATION: FALL TECHNIQUE: Three views. COMPARISON: None. FINDINGS: Downsloping acromion with large inferior spur and narrowing of the glenohumeral joint superiorly suspicious for rotator cuff tear. 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 Moderate AC joint degenerative changes. No fracture, dislocation or suspicious osseous lesion. Left hilar surgical changes. IMPRESSION: 1. Findings suggestive of a rotator cuff tear 2. Moderate AC joint degenerative changes 3. 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
--- NOTE | 2016-07-17 17:17 | DIAGNOSTIC IMAGING REPORT ---
PROCEDURE: XR ELBOW 3 OR 4 VIEWS - LEFT INDICATION: TRAUMA/INJURY TECHNIQUE: Four views. COMPARISON: None. FINDINGS: Curvilinear soft tissue calcification adjacent to the radial head but there is no fracture, dislocation or effusion. IMPRESSION: 1. No acute changes.
--- NOTE | 2016-07-19 03:57 | ED DISCHARGE INSTRUCTIONS ---
Patient: BIPIN HOROWITZ General Instructions [facility] VisitID: [id number] [place] [address] 81y, F Registration Date/Time: 07/17/2016 Gross hematuria (with asymptomatic bacteriuria). Contusion to the left elbow. Fall from bed. INSTRUCTIONS Apply ice for 20 minutes four times a day until better. Don't apply ice directly to skin and don't use while asleep. Wear simple sling until better. No driving or operating machinery while taking medication. Warnings: COMPLICATIONS: Complications from this condition are possible. Future problems may include loss of function and pain. GENERAL WARNINGS: Return or contact your physician immediately if your condition worsens or changes unexpectedly, if not improving as expected, or if other problems arise. Prescription Medications: Tylenol with Codeine #3 (30 mg / 300 mg): take 1 tablet every 4 hours as needed for pain. Dispense fifteen (15). No refills. Substitution is permissible. Follow-up: Follow up with your doctor as needed. Understanding of the discharge instructions verbalized by patient and family. ADDITIONAL INFORMATION Mechanical Fall You have had a fall today. It appears that the cause is mechanical. That means that you slipped, tripped or lost your balance. If your fall had been due to fainting or a seizure, further tests would be required. Home Care: Rest today and resume your normal activities when you are feeling back to normal. If you were injured during the fall, follow the advice from your doctor regarding care of your injury. You may use acetaminophen (Tylenol) or ibuprofen (Motrin, Advil) to control pain, unless another pain medicine was prescribed. [NOTE: If you have chronic liver or kidney disease or ever had a stomach ulcer or GI bleeding, talk with your doctor before using these medicines.] Fall Prevention: Was there anything that caused your fall that can be fixed, removed, or replaced? Make your home safe by keeping walkways clear of objects you may trip over. Use non-slip pads under rugs. Do not walk in poorly lit areas. Do not stand on chairs or wobbly ladders. Use caution when reaching overhead or looking upward. This position can cause a loss of balance. Be sure your shoes fit properly, have non-slip bottoms and are in good condition. Be cautious when going up and down curbs, and walking on uneven sidewalks. If your balance is poor, consider using a cane or walker. Stay as active as you can. Balance, flexibility, strength, and endurance all come from exercise. They all play a role in preventing falls. Follow Up with your doctor or as advised by our staff. Get Prompt Medical Attention if any of the following occur: Repeated mechanical falls, or unexplained falls Dizziness, fainting or seizure Severe headache Chest pain or shortness of breath Palpitations (very rapid or very slow or irregular heartbeat) Blood in vomit, stools (black or red color) Weakness of an arm or leg or one side of the face Difficulty with speech or vision Contusion, Elbow A contusion of your elbow causes local pain, swelling and sometimes bruising. There are no broken bones. This injury takes a few days to a few weeks to heal. A sling may be provided for comfort and arm support Home Care : Keep your arm elevated to reduce pain and swelling.This is most important during the first 48 hours after injury. Apply an ice pack (ice cubes in a plastic bag, wrapped in a towel) over the injured area for 20 minutes every 1-2 hours the first day. You should continue with ice packs 3-4 times a day for the next two days. Continue the use of ice packs for relief of pain and swelling as needed. You may use acetaminophen (Tylenol) or ibuprofen (Motrin, Advil) to control pain, unless another pain medicine was prescribed. [NOTE: If you have chronic liver or kidney disease or ever had a stomach ulcer or GI bleeding, talk with your doctor before using these medicines.] If a sling was provided, you may remove it to shower or bathe. Do not wear it for more than one week or it may cause joint stiffness. Follow Up with your doctor or as advised by our staff if you are not starting to improve within the nextthree days. Get Prompt Medical Attention if any of the following occur: Pain or swelling increases Redness, warmth or drainage Hand or fingers becomes cold, blue, numb or tingly Blood In The Urine Blood in the urine ("hematuria") has many possible causes. If it occurs after an injury (such as a car accident or fall), it is most often a sign of bruising to the kidney or bladder. Common medical causes of blood in the urine include urinary tract infection, kidney stone, inflammation, tumors, or certain other diseases of the kidney or bladder. Menstruation can cause blood to appear in the urine sample, although it is not coming from the urinary tract. If only a trace amount of blood is present, it will show up on the urine test, even though the urine may be yellow and not pink or red. This may occur with any of the above conditions, as well as heavy exercise or high fever. In this case, your doctor may want to repeat the urine test on another day. This will show if the blood is still present. If so, then other tests can be done to find out the cause. Home Care: If your urine does not appear bloody (pink, brown or red) then you do not need to restrict your activity in any way. If you can see blood in your urine, rest and avoid heavy exertion until your next exam. Do not use aspirin or anti-inflammatory medicine like ibuprofen (Motrin, Advil) or naproxen (Naprosyn, Aleve). These thin the blood and may increase bleeding. Follow Up with your doctor or as advised by our staff. If you were injured and had blood in your urine, you should have a repeat urine test in 1-2 days. Contact your doctor or return to this facility for this test. [NOTE: A radiologist will review any X-rays that were taken. We will notify you of any new findings that may affect your care.] Get Prompt Medical Attention if any of the following occur: Bright red blood or blood clots in the urine (if a new symptom) Weakness, dizziness or fainting New groin, abdominal or back pain Fever of 100.4F (38C) or higher, or as directed by your healthcare provider Repeated vomiting Bleeding from nose, gums or easy bruising Sling A sling is designed to support your arm in a position of rest. It is used for injuries of the hand, forearm, upper arm, and shoulder. A shoulder that is immobilized too long can become stiff and lose range of motion. Follow up with your doctor as advised and do not use the sling longer than directed. Home Use: Leave the sling in place as long as directed by your doctor. Unless told otherwise, you may remove it when bathing, dressing, and when you go to sleep. The sling is adjustable. If it becomes loose, adjust it so that your forearm is horizontal (level with the ground). Your hand should be level with the elbow. Acetaminophen, Codeine Phosphate Oral tablet What is this medicine? ACETAMINOPHEN; CODEINE (a set a MILADIS henrique fen; SAVANAH carrillo) is a pain reliever. It is used to treat mild to moderate pain. How should I use this medicine? Take this medicine by mouth with a full glass of water. Follow the directions on the prescription label. If the medicine upsets your stomach, take the medicine with food or milk. Do not take more medicine than you are told to take. Talk to your distribution a class lineman regarding the use of this medicine in children. Special care may be needed. What side effects may I notice from receiving this medicine? Side effects that you should report to your doctor or health healthcare risk control consultant as soon as possible: allergic reactions like skin rash, itching or hives, swelling of the face, lips, or tongue breathing difficulties, wheezing confusion light headedness or fainting spells severe stomach pain yellowing of the skin or the whites of the eyes Side effects that usually do not require medical attention (report to your doctor or health healthcare risk control consultant if they continue or are bothersome): dizziness drowsiness nausea, vomiting What may interact with this medicine? alcohol antihistamines benztropine drugs for bladder problems like solifenacin, trospium, oxybutynin, tolterodine, hycosamine, and methscopolamine drugs for breathing problems like ipratropium and tiotropium drugs for certain stomach or intestine problems like propantheline, homatropine methylbromide, glycopyrrolate, atropine, belladonna, and dicyclomine medicines for depression, anxiety, or psychotic disturbances medicines for sleep muscle relaxants naltrexone narcotic medicines (opiates) for pain phenothiazines like perphenazine, thioridazine, chlorpromazine, mesoridazine, fluphenazine, prochlorperazine, promazine, trifluoperazine scopolamine tramadol trihexyphenidyl What if I miss a dose? If you miss a dose, take it as soon as you can. If it is almost time for your next dose, take only that dose. Do not take double or extra doses. Where should I keep my medicine? Keep out of the reach of children. This medicine can be abused. Keep your medicine in a safe place to protect it from theft. Do not share this medicine with anyone. Selling or giving away this medicine is dangerous and against the law. Store at room temperature between 15 and 30 degrees C (59 and 86 degrees F). Protect from light. Keep container tightly closed. Throw away any unused medicine after the expiration date. Discard unused medicine and used packaging carefully. Pets and children can be harmed if they find used or lost packages. What should I tell my health care provider before I take this medicine? They need to know if you have any of these conditions: brain tumor Crohn's disease, inflammatory bowel disease, or ulcerative colitis drink more than 3 alcohol containing drinks per day drug abuse or addiction head injury heart or circulation problems kidney disease or problems going to the bathroom liver disease lung disease, asthma, or breathing problems an unusual or allergic reaction to acetaminophen, codeine, salicylates, other opioid analgesics, other medicines, foods, dyes, or preservatives or trying to get breast-feeding What should I watch for while using this medicine? Tell your doctor or health healthcare risk control consultant if your pain does not go away, if it gets worse, or if you have new or a different type of pain. You may develop tolerance to the medication. Tolerance means that you will need a higher dose of the medication for pain relief. Tolerance is normal and is expected if you take the medicine for a long time. Do not suddenly stop taking your medicine because you may develop a severe reaction. Your body becomes used to the medicine. This does NOT mean you are addicted. Addiction is a behavior related to getting and using a drug for a non medical reason. If you have pain, you have a medical reason to take pain medicine. Your doctor will tell you how much medicine to take. If your doctor wants you to stop the medicine, the dose will be slowly lowered over time to avoid any side effects. You may get drowsy or dizzy. Do not drive, use machinery, or do anything that needs mental alertness until you know how this medicine affects you. Do not stand or sit up quickly, especially if you are an older patient. This reduces the risk of dizzy or fainting spells. Alcohol may interfere with the effect of this medicine. Avoid alcoholic drinks. There are different types of narcotic medicines (opiates) for pain. If you take more than one type at the same time, you may have more side effects. Give your health care provider a list of all medicines you use. Your doctor will tell you how much medicine to take. Do not take more medicine than directed. Call emergency for help if you have problems breathing. The medicine will cause constipation. Try to have a bowel movement at least every 2 to 3 days. If you do not have a bowel movement for 3 days, call your doctor or health healthcare risk control consultant. Do not take Tylenol (acetaminophen) or medicines that have acetaminophen with this medicine. Too much acetaminophen can be very dangerous. Many nonprescription medicines contain acetaminophen. Always read the labels carefully to avoid taking more acetaminophen. Immediately call your physician or get emergency help if you are breast-feeding and your baby is sleepier than usual, is limp, or has difficulty or breathing. You have been given the following additional information: Fall, Mechanical Contusion, Elbow Hematuria Sling Acetaminophen, Codeine Phosphate Oral tablet No driving or operating machinery while taking medication. (Electronically signed by Lucien Nevarez MD 07/19/2016 3:57)
--- NOTE | 2016-07-19 03:57 | ED MED RECONCILIATION SUMMARY ---
Patient: BIPIN HOROWITZ Medication Reconciliation Report [facility] VisitID: [id number] [address] [place] [address] 81y, F Registration Date/Time: 07/17/2016 Weight: 63.0 kg Height/Length: 65 in. BMI: 23.1 ALLERGIES: Sulfa Antibiotics The patient's Home Medications are listed below: THE FOLLOWING MEDICATIONS NEED TO BE RECONCILED: Albuterol Sulfate Inhalation nebulizer, daily Aspirin Oral (81 mg) 1 tablet Atenolol Oral (100 mg) 1-1/2 tablets, daily Clopidogrel Bisulfate Oral (75 mg) 1 tablet, daily Diltiazem HCl Oral 300 mg, daily FLUoxetine HCl Oral (10 mg) 1 capsule, 2x a day Levothyroxine Sodium Oral (75 mcg) 1 tablet, daily Memantine HCl Oral (10 mg) 1 tablet Namenda Oral (10 mg) 1 tablet, daily Nitroglycerin Transdermal 0.3 mg, daily The source(s) of the original Home Medication information: patient's family member The following Medications were given to the patient in the Emergency Department: None. The following Medications were prescribed to the patient: Tylenol with Codeine #3 (30 mg / 300 mg): take 1 tablet every 4 hours as needed for pain. Dispense fifteen (15). No refills. Substitution is permissible. -- Lucien Nevarez MD
--- NOTE | 2016-07-19 03:57 | ED MAR SUMMARY ---
..... Medication Administration Record [facility] [address] [place], [place] [id number] Patient: BIPIN HOROWITZ Visit ID: [id number] 81y, F Weight: 63.0 kg Height/Length: 65 in BMI: 23.1 ALLERGIES: Sulfa Antibiotics
--- NOTE | 2016-07-19 03:57 | ED MED RECONCILIATION SUMMARY ---
Patient: BIPIN HOROWITZ Medication Reconciliation Report [facility] VisitID: [id number] [address] [place] [address] 81y, F Registration Date/Time: 07/17/2016 Weight: 63.0 kg Height/Length: 65 in. BMI: 23.1 ALLERGIES: Sulfa Antibiotics The patient's Home Medications are listed below: THE FOLLOWING MEDICATIONS NEED TO BE RECONCILED: Albuterol Sulfate Inhalation nebulizer, daily Aspirin Oral (81 mg) 1 tablet Atenolol Oral (100 mg) 1-1/2 tablets, daily Clopidogrel Bisulfate Oral (75 mg) 1 tablet, daily Diltiazem HCl Oral 300 mg, daily FLUoxetine HCl Oral (10 mg) 1 capsule, 2x a day Levothyroxine Sodium Oral (75 mcg) 1 tablet, daily Memantine HCl Oral (10 mg) 1 tablet Namenda Oral (10 mg) 1 tablet, daily Nitroglycerin Transdermal 0.3 mg, daily The source(s) of the original Home Medication information: patient's family member The following Medications were given to the patient in the Emergency Department: None. The following Medications were prescribed to the patient: Tylenol with Codeine #3 (30 mg / 300 mg): take 1 tablet every 4 hours as needed for pain. Dispense fifteen (15). No refills. Substitution is permissible. -- Lucien Nevarez MD
--- NOTE | 2016-07-19 03:57 | ED MAR SUMMARY ---
..... Medication Administration Record [facility] [address] [place], [place] [id number] Patient: BIPIN HOROWITZ Visit ID: [id number] 81y, F Weight: 63.0 kg Height/Length: 65 in BMI: 23.1 ALLERGIES: Sulfa Antibiotics
== END 2016-07-17 17:20 | disposition home or self-care (01) ==
LOC: ED SRH 15:16
DX: S50.02XA Contusion of left elbow, initial encounter (principal); R31.0 Gross hematuria; W06.XXXA Fall from bed, initial encounter; Y99.9 Unspecified external cause status; Y92.009 Unspecified place in unspecified non-institutional (private) residence as the place of occurrence of the external cause; Z87.891 Personal history of nicotine dependence; Z79.51 Long term (current) use of inhaled steroids; Z79.82 Long term (current) use of aspirin; Z79.899 Other long term (current) drug therapy; Z88.2 Allergy status to sulfonamides; M19.012 Primary osteoarthritis, left shoulder